=== PATIENT | female | born 1960 | race Caucasian/White ===

== ENCOUNTER 2020-09-26 09:19 | Emergency (ER) | payer SELFPAY ==
[2020-09-26 09:56] VITALS: BP 106/43; PULSE 95; RESP 16; TEMP 36.8; O2SAT 97; BMI 26.5
[2020-09-26 10:00] VITALS: O2SAT 95
--- NOTE | 2020-09-26 10:09 | ED_ITS ---
HPI - Dental/Oral General: Chief complaint: Dental/Oral Stated complaint: mouth swelling/dental pain Time Seen by Provider: 09/26/20 10:03 History of Present Illness: HPI Narrative: Patient is a 60-year-old female comes to the ED with dental pain. Patient says symptoms started yesterday. She has 10 out of 10 pain in the left lower jaw with some swelling. She is currently calling around to get an appointment scheduled with the dentist. Patient endorses having some nausea but no emesis. Denies any shortness of breath or trouble breathing, fevers, chills. Associated symptoms: Denies fever(s) or odynophagia Review of Systems Const: Denies: fever(s), chills or fatigue Eyes: Denies: change in vision or eye discomfort ENMT: Reports: dental pain and other (left lower mandible swelling); Denies: throat pain, odynophagia, nasal discharge or nasal congestion Card: Denies: chest pain, palpitations, edema, swelling of feet/ankles, dyspnea on exertion or orthopnea Resp: Denies: dyspnea, productive cough or non-productive cough GI: Reports: nausea; Denies: abdominal pain, vomiting, diarrhea, constipation or hematochezia : Denies: flank pain, dysuria or hematuria Musc: Denies: neck pain, back pain or extremity swelling Skin/Breast: Denies: rash or new lesions Neuro: Denies: headache(s), numbness in extremities or weakness in extremities Physical Exam Const: COMMON NORMALS: patient oriented x3 and alert GENERAL APPEARANCE: cooperative and comfortable HENMT: COMMON NORMALS: normocephalic HEAD & SCALP: normocephalic MOUTH: Normal oral and palatal mucosa present TEETH & GINGIVA: Yes abnormal tooth and associated gingiva lower left third molar tender and with associated gingival edema, Yes caries and Yes poor dentition THROAT: posterior oropharynx normal and uvula midline Neck/C-Spine: COMMON NORMALS: supple GENERAL: Yes normal visual inspection Resp: COMMON NORMALS: normal respiratory effort, No retractions, No use of accessory muscles and clear to auscultation bilaterally AUSCULTATION: clear to auscultation bilaterally Cardio: COMMON NORMALS: regular rate, regular rhythm, S1 normal heart sound present, S2 normal heart sound present, No gallops present (Cardio), No clicks present (Cardio), No murmurs present (Cardio) and Peripheral pulses 2+ throughout RATE: regular rate RHYTHM: regular rhythm HEART SOUNDS: S1 normal heart sound present and S2 normal heart sound present PERIPHERAL PULSES: Peripheral pulses 2+ throughout GI: COMMON NORMALS: Normal to inspection, nondistended, normoactive bowel sounds present, Soft to palpation, non-tender and no masses PALPATION: Yes Soft to palpation : COMMON NORMALS: Yes no CVA tenderness BLADDER/KIDNEY EXAM: Yes no CVA tenderness Back/Pelvis: COMMON NORMALS: no CVA tenderness Extremity: COMMON NORMALS: normal to inspection Neuro: COMMON NORMALS: patient oriented x3 and moves all extremities SENSORIUM/ORIENTATION: Yes alert Skin: GENERAL SKIN EXAM: dry skin Course Vital Signs: Vital signs: Vital Signs Temperature 98.2 F 09/26/20 09:56 Pulse Rate 95 09/26/20 09:56 Respiratory Rate 16 09/26/20 09:56 Blood Pressure 106/43 09/26/20 09:56 Pulse Oximetry 95 09/26/20 10:00 MDM - Dental/Oral MDM Narrative: Medical decision making narrative: Patient is a 60-year-old female comes to the ED with dental pain. Patient appears nontoxic and she has poor dentition and extensive dental caries especially in the left lower molars. Patient was discharged home with a prescription for clindamycin, Tylenol for pain and Zofran for nausea. Patient told to contact dentist and set up an appoint with them as soon as possible for further evaluation. Return to ED precautions given. Patient understood and agree with plan. Discharge Plan Discharge Patient Disposition: Home Clinical Impression: Pain due to dental caries Condition: Stable Prescriptions: New clindamycin HCl 150 mg capsule 300 mg PO QID 7 Days Qty: 56 RF: 0 ondansetron 4 mg tablet,disintegrating 4 mg PO Q8H PRN (Reason: nausea and vomiting) Qty: 12 RF: 0 Tylenol Extra Strength 500 mg tablet 1,000 mg PO TID PRN (Reason: fever or pain) Qty: 30 RF: 0 Discharge Orders: Discharge ED (Routine); Ordered 09/26/20 Ordered By: Nickolas Collazo Discharge Diet: Regular Discharge Activity: Resume usual activity Patient Instructions: Dental Caries (ED) Activity Restrictions/Additional Instructions: Follow-up with medical provider as directed. Contact your dentist and set up an appoint with them for further evaluation of dental pain as soon as possible. Take medications as prescribed. Return to the ER or your medical provider if condition worsens. Please read and understand discharge instructions. Thank you for choosing [facility] for your healthcare needs today. Please realize this is an emergency room and that we are providing you with a medical screening exam and this may not be complete and all inclusive of all the testing and or work up that you may need to determine your ailment or severity of your illness. It is very important that you follow up as instructed or that you return to the Emergency Department should you have concerns or if your condition changes or worsens in any way. Coding Level of Care Code ED Product Support Manager for Quentin Fwbrett Exam Comprehensive
[2020-09-26] MEDS: clindamycin 150 mg Capsule 300 MG PO (10:36)
[2020-09-26] MEDS: ondansetron 2 mg/ML SDV 2 mL 4 MG IM (10:36)
[2020-09-26] MEDS: HYDROcodone-acetaminophen 7.5-325 mg Tablet 1 TAB PO (10:36)
== END 2020-09-26 10:40 | disposition home or self-care (01) ==
PROVIDERS: Emergency Provider Physician Assistant
DX: K02.9 Dental caries, unspecified (principal)
CPT/HCPCS: 96372; 99283; J2405

== ENCOUNTER 2020-12-19 12:30 | Outpatient (CLI) | payer MEDICAID, SELFPAY ==
--- NOTE | 2020-12-19 12:50 | XR_ITS ---
WS: [id number] LUMBAR SPINE FLEXION AND EXTENSION TECHNIQUE: 3 views of the lumbar spine: Lateral neutral, flexion, and extension views. CLINICAL INFORMATION: LOW BACK PAIN COMPARISON: None. FINDINGS: Grade 1 anterolisthesis L4 on L5 measuring 6 mm in neutral. This increases slightly in flexion to 7 m m and is not significantly changed in extension. Disc space narrowing worse L4-L5 and L5-S1. No acute compression fractures. Moderate to advanced facet arthropathy L4-L5 and L5-S1. XR/XR lumbar spine f/e only [id number] IMPRESSION: Grade 1 anterolisthesis L4 on L5 measuring 6 mm with mild flexion instability.
--- NOTE | 2020-12-19 12:50 | CT_ITS ---
WS: [id number] CT LUMBAR SPINE TECHNIQUE: Noncontrast CT of the lumbar spine with coronal and sagittal reformatted images. CLINICAL INFORMATION: LOW BACK PAIN COMPARISON: None. DLP: 1883.[address] scans at [facility] use at least one of these dose optimization techniques: automated e xposure control; mA and/or kV adjustment per patient size (includes targeted exams where dose is matc hed to clinical indication); or iterative reconstruction. FINDINGS: Mild lumbar curve. No acute compression. Grade 1 anterolisthesis L4 on L5. Lung bases are well aerate d. L1-L2: Normal. L2-L3: Mild annular bulging. Slight effacement of ventral thecal sac. Mild right and no significant l eft foraminal narrowing. Moderate facet arthropathy. Spinal canal is patent. L3-L4: Slight retrolisthesis L3 on L4. Mild annular bulging with mild central canal stenosis. Slight impingement on the subarticular recess bilaterally with moderate facet arthropathy and ligamentum fla vum hypertrophy. Small bilateral foraminal protrusions left greater than right with mild left greater than right foraminal narrowing. L4-L5: Grade 1 anterolisthesis L4 on L5. Disc bulging in combination with facet arthropathy and ligam entum flavum hypertrophy results in moderate central canal stenosis. Impingement traversing L5 nerve roots bilaterally. Advanced facet arthropathy. Small right foraminal protrusion with mild right sammy inal narrowing. Left foramen is patent. L5-S1: Mild annular bulging. Slight effacement of ventral thecal sac. Slight contact of the traversin g S1 nerve roots without significant impingement. Moderate to advanced facet arthropathy worse on the right. Foramen are patent. Visualized pelvic bony structures: Normal. Paravertebral soft tissues: Normal. CT/CT lumbar spine wo con* [id number] IMPRESSION: 1. Mild lumbar curve. No acute compression. Grade 1 anterolisthesis L4 on L5 m easuring 4.3 mm. 2. Moderate central canal stenosis L4-5 with impingement traversing L5 nerve r oots bilaterally. 3. Mild right L4-5 foraminal narrowing. 4. Mild central canal stenosis L3-4. 5. Small left greater than right foraminal protrusions L3-4 with slight contac t of the exiting left greater than right L3 nerve roots. 6. Mild right L2-3 foraminal narrowing. 7. Moderate to advanced facet arthropathy L3-L5.
== END 2020-12-19 12:31 | disposition home or self-care (01) ==
LOC: RADWPI 12:32
PROVIDERS: Visit Provider Nurse Practitioner
DX: M53.2X6 Spinal instabilities, lumbar region (principal); M47.816 Spondylosis without myelopathy or radiculopathy, lumbar region; M48.061 Spinal stenosis, lumbar region without neurogenic claudication
CPT/HCPCS: 72120; 72131

== ENCOUNTER 2021-05-03 02:03 | Inpatient (IN) | payer MEDICAID, SELFPAY ==
[2021-05-03] VITALS (18 sets, daily range): BP systolic 102–171; BP diastolic 68–109; PULSE 65–92; RESP 14–20; TEMP 36.7–37.4; O2SAT 92–100; BMI 26.5
--- NOTE | 2021-05-03 02:37 | CTR_ITS ---
PROCEDURE INFORMATION: Exam: CT Head Without Contrast Exam date and time: 05/03/2021 2:37 AM Age: 61 years old Clinical indication: Altered mental status/memory loss; Prior surgery; Surgery type: Cervical fusion. ; Patient HX: AMS with ETOH. TECHNIQUE: Imaging protocol: Computed tomography of the head without contrast. Radiation optimization: All CT scans at this facility use at least one of these dose optimization techniques: automated exposure control; mA and/or kV adjustment per patient size (includes targeted exams where dose is matched to clinical indication); or iterative reconstruction. COMPARISON: No relevant prior studies available. 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 Cerebral ventricles: No ventriculomegaly. Paranasal sinuses: Visualized sinuses are unremarkable. No fluid levels. Mastoid air cells: Visualized mastoid air cells are well aerated. Bones/joints: Unremarkable. No acute fracture. Soft tissues: Unremarkable. CT/CT head wo con* [id number] IMPRESSION: No acute intracranial findings.
--- NOTE | 2021-05-03 02:38 | XRR_ITS ---
PROCEDURE INFORMATION: Exam: XR Chest Exam date and time: 05/03/2021 2:38 AM Age: 61 years old Clinical indication: Other: Ams/etoh; Prior surgery; Surgery type: Cervical fusion; Patient HX: AMS with ETOH. Patient acting very confused and disoriented. Best filim obtained. TECHNIQUE: Imaging protocol: XR of the chest. Views: 1 view. COMPARISON: No relevant prior studies available. FINDINGS: Lungs: Mildly hyperaerated lungs consistent with deep inspiratory effort vs reactive airway disease vs mild COPD . Pleural spaces: Unremarkable. No pleural effusion. No pneumothorax. Heart/Mediastinum: Unremarkable. No cardiomegaly. Bones/joints: Postoperative metallic fixation of the cervical spine with or without metallic artifact. XR/XR chest 1V portable [id number] IMPRESSION: Mildly hyperaerated lungs consistent with deep inspiratory effort vs reactive airway disease vs mild COPD .
--- NOTE | 2021-05-03 02:57 | ED_ITS ---
HPI - Altered Mental Status General: Chief Complaint: Altered Mental Status Stated Complaint: ETOH/FALL Time Seen by Provider: 05/03/21 02:08 History of Present Illness: 61-year-old lady presents by ambulance from [facility]. Evidently she was found on the floor. She does not know how long she has been on the floor, but she says it has been quite some time. She says that she has carpet faria to her backside in the back of her shoulders due to being on the floor and having to scoot herself on her back. She notes that she has chronic stiff legs. She takes medication for stiffness. She admits to having Xanax, baclofen, and alcohol, probably in the last 24 hours, although she is not sure about timing. She is obviously a poor historian at this point. She states that she was left in the floor by Thom who was my boyfriend . Review of Systems General: Reports: ROS unobtainable due to mental status (Unreliable) Physical Exam Const: GENERAL APPEARANCE: anxious, frail appearing and appears older than stated age ORIENTATION/CONSCIOUSNESS: Yes awake, Yes oriented to person, Yes oriented to place and Yes confused; not oriented to time HENMT: COMMON NORMALS: normocephalic, atraumatic and Normal external nose present HEAD & SCALP: normocephalic and atraumatic FACE & SINUS: normal facial exam NOSE: Normal external nose present and Normal nares present Eye: COMMON NORMALS: Equal, round and reactive pupils present and EOMs intact bilaterally PUPIL: Yes Equal, round and reactive pupils present Neck/C-Spine: COMMON NORMALS: no meningeal signs GENERAL: No tender Resp: COMMON NORMALS: normal respiratory effort, No use of accessory muscles and clear to auscultation bilaterally AUSCULTATION: clear to auscultation bilaterally Cardio: COMMON NORMALS: regular rate and regular rhythm RATE: regular rate RHYTHM: regular rhythm GI: COMMON NORMALS: Normal to inspection, nondistended, normoactive bowel sounds present and Soft to palpation PALPATION: Yes Soft to palpation : COMMON NORMALS: Yes no CVA tenderness BLADDER/KIDNEY EXAM: Yes no CVA tenderness Back/Pelvis: COMMON NORMALS: no CVA tenderness Neuro: CLAUDIO COMA SCALE: document GCS findings [place] coma scale eye opening: Spontaneous Claudio coma scale verbal response: Confused [place] coma scale motor response: Obey commands Claudio coma scale total score: 14 SENSORIUM/ORIENTATION: Yes oriented to person, Yes oriented to place and No oriented to time MENINGEAL SIGNS: Yes no meningeal signs Course Consultations: Consultation #1: inna Time: 05:16 Vital Signs: Vital signs: Vital Signs Temperature 99.3 F 05/03/21 02:04 Pulse Rate 70 05/03/21 05:00 Respiratory Rate 18 05/03/21 05:00 Blood Pressure 127/91 05/03/21 05:00 Pulse Oximetry 96 05/03/21 05:00 MDM - Altered Mental Status Medical Decision Making 61-year-old female presenting via EMS. She notes that she has been in the floor of the home for a couple of days. She denies drinking for the last 2 days. She is incredibly anxious. She denies any toxic symptoms otherwise, but is a very poor historian. White blood cell count is 13 with 80% neutrophils. Sodium is elevated at 149. Creatinine 0.7. CK is only 583. Ammonia level is 22. Alcohol is negative. Head CT is negative for acute change. She has no focal neurologic findings. Chest x-ray is negative as well. Urinalysis is nitrate positive, but leukocyte Estrace negative. Because of mental status changes not clear at this point. Her drug screen is positive for opiates. Her oxygen saturations been normal. She is afebrile here. In the differential diagnosis would be alcohol withdrawal, opiate intoxication, infectious etiology although this does not seem likely. Sodium is elevated, but not to the level we would expect for these types of mental status changes. She will be observed. Lab Data : 05/03/21 03:15 05/03/21 03:[address] 05/03/21 02:37 IMPRESSION: No acute intracranial findings. Chest X-Ray 05/03/21 02:38 IMPRESSION: Mildly hyperaerated lungs consistent with deep inspiratory effort vs reactive airway disease vs mild COPD . Laboratory Results WBC 13.0 10^3/uL (4.0-10.0) H 05/03/21 03:15 RBC 4.43 10^6/uL (4.1-5.3) 05/03/21 03:15 Hgb 14.2 g/dL (11.5-15.3) 05/03/21 03:15 Hct 41.6 % (37.0-47.0) 05/03/21 03:15 MCV 93.9 fl (81-99) 05/03/21 03:15 MCH 32.1 pg (28.0-34.0) 05/03/21 03:15 MCHC 34.1 g/dL (30.0-36.0) 05/03/21 03:15 RDW 15.9 % (12.1-15.1) H 05/03/21 03:15 Plt Count 475 10^3/cmm (130-400) H 05/03/21 03:15 MPV 9.9 fL (7.4-10.4) 05/03/21 03:15 Neut % (Auto) 80.2 % 05/03/21 03:15 Lymph % (Auto) 5.9 % 05/03/21 03:15 [place] % (Auto) 12.6 % 05/03/21 03:15 Eos % (Auto) 0.2 % 05/03/21 03:15 Baso % (Auto) 0.3 % 05/03/21 03:15 Neut # (Auto) 10.39 10^3/uL (1.8-7.7) H 05/03/21 03:15 Lymph # (Auto) 0.8 10^3/uL (0.8-4.8) 05/03/21 03:15 [place] # (Auto) 1.6 10^3/uL (0.2-0.9) H 05/03/21 03:15 Eos # (Auto) 0.0 10^3/uL (0.0-0.8) 05/03/21 03:15 Baso # (Auto) 0.0 10^3/uL (0.0-0.1) 05/03/21 03:15 Nucleated RBC % (auto) 0 % 05/03/21 03:15 Nucleated RBCs # 0.0 /100WBC 05/03/21 03:15 PT 13.60 SECONDS (12.1-14.9) 05/03/21 03:15 INR 1.01 (0.8-1.2) 05/03/21 03:15 APTT 20.3 SECONDS (23.9-36.7) L 05/03/21 03:15 Sodium 149 mmol/L (136-145) H 05/03/21 03:15 Potassium 3.7 mmol/L (3.5-5.1) 05/03/21 03:15 Chloride 108 mmol/L (98-107) H 05/03/21 03:15 Carbon Dioxide 27 mmol/L (22-29) 05/03/21 03:15 Anion Gap 17.7 (5-19) 05/03/21 03:15 BUN 9 mg/dL (6-20) 05/03/21 03:15 Creatinine 0.7 mg/dL (0.5-0.9) 05/03/21 03:15 GFR Calculation 85.6 mL/min (90-130) L 05/03/21 03:15 Glucose 129 mg/dL (65-115) H 05/03/21 03:15 Calculated Osmolality 308 mOsm/kg (285-295) H 05/03/21 03:15 Lactate 2.2 mmol/L (0.5-2.2) 05/03/21 03:15 Lactate Cancelled 05/03/21 03:15 Calcium 8.6 mg/dL (8.5-10.5) 05/03/21 03:15 Total Bilirubin 0.7 mg/dL (0.15-1.2) 05/03/21 03:15 AST 41 U/L (0-32) H 05/03/21 03:15 ALT 22 U/L (0-33) 05/03/21 03:15 Alkaline Phosphatase 143 IU/L (35-105) H 05/03/21 03:15 Ammonia 22 umol/L (11-51) 05/03/21 03:15 Creatine Kinase 583 U/L (26-192) H* 05/03/21 03:15 Total Protein 6.8 g/dL (6.6-8.7) 05/03/21 03:15 Albumin 3.8 g/dL (3.5-5.2) 05/03/21 03:15 Globulin 3.0 g/dL (1.3-4.6) 05/03/21 03:15 Urine Color Yellow (Yellow) 05/03/21 04:07 Urine Appearance Sl cloudy (CLEAR) A 05/03/21 04:07 Urine pH 5 (5-7) 05/03/21 04:07 Ur Specific [place] 1.020 (1.005-1.030) 05/03/21 04:07 Urine Protein 1+ (Negative) H 05/03/21 04:07 Urine Glucose (UA) Norm (Normal) 05/03/21 04:07 Urine Ketones 1+ (Negative) H 05/03/21 04:07 Urine Blood 2+ (Negative) H 05/03/21 04:07 Urine Nitrate Positive (Negative) H 05/03/21 04:07 Urine Bilirubin Neg (Negative) 05/03/21 04:07 Urine Urobilinogen Norm mg/dL (Negative) 05/03/21 04:07 Ur Leukocyte Esterase Negative (Negative) 05/03/21 04:07 Urine RBC 0-4 /hpf (0-2) H 05/03/21 04:07 Urine WBC 0-4 /hpf (0-5) H 05/03/21 04:07 Ur Squamous Epith Cells 0-4 /hpf (0-5) H 05/03/21 04:07 Amorphous Sediment Not Reportable 05/03/21 04:07 Urine Bacteria 4+ /hpf (NONE) H 05/03/21 04:07 Urine Opiates Screen Positive ng/mL (Negative) H 05/03/21 04:07 Ur Barbiturates Screen Negative ng/mL (Negative) 05/03/21 04:07 Ur Phencyclidine Scrn Negative ng/mL (Negative) 05/03/21 04:07 Ur Amphetamines Screen Negative ng/mL (Negative) 05/03/21 04:07 U Benzodiazepines Scrn Negative ng/mL (Negative) 05/03/21 04:07 Urine Cocaine Screen Negative ng/mL (Negative) 05/03/21 04:07 U Marijuana (THC) Screen Negative ng/mL (Negative) 05/03/21 04:07 Ethyl Alcohol < 10 mg/dL (0-10) 05/03/21 03:15 Discharge Plan Discharge Patient Disposition: Placed in Observation Clinical Impression: Altered mental status Coding Level of Care Code ED Candy Attendant for Quentin Connelly Exam Comprehensive
[2021-05-03] MEDS: sodium chloride 0.9% 1,000 ML 999 ML IV (03:23)
[2021-05-03 03:26] LABS: Basophils % 0.3 %; Eosinophils % 0.2 %; Hematocrit 41.6 % (37.0-47.0); Hemoglobin 14.2 g/dL (11.5-15.3); Lymphocytes # 0.8 10^3/uL (0.8-4.8); Lymphocytes % 5.9 %; Mean Corpuscular HGB Conc 34.1 g/dL (30.0-36.0); Mean Corpuscular Hemoglobin 32.1 pg (28.0-34.0); Mean Corpuscular Volume 93.9 fl (81-99); Mean Platelet Volume 9.9 fL (7.4-10.4); Monocytes # 1.6 10^3/uL (0.2-0.9); Monocytes % 12.6 %; Neutrophils # 10.39 10^3/uL (1.8-7.7); Neutrophils % 80.2 %; Nucleated Red Blood Cells % 0 %; Platelet Count 475 10^3/cmm (130-400); Red Blood Count 4.43 10^6/uL (4.1-5.3); Red Cell Distribution Width 15.9 % (12.1-15.1)
[2021-05-03] MEDS: haloperidol inj 5 mg/mL INJ 1 mL 3 MG IVP (03:27)
[2021-05-03 03:37] LABS: INR 1.01 (0.8-1.2)
[2021-05-03 03:38] LABS: Partial Thromboplastin Time 20.3 SECONDS (23.9-36.7)
[2021-05-03 03:44] LABS: Lactate (Lactic Acid level) 2.2 mmol/L (0.5-2.2)
--- NOTE | 2021-05-03 03:46 | ECG_ITS ---
[facility] Test Date: 2021-05-03 Pat Name: Anastasiya Puga Department: Room: Gender: Female Astronomy Professor: : 1960 Requested By: Prieto Olmos Order Number: [id number] Margy MD: Pratik Quiñonez M.D. Measurements Intervals [place] Rate: 66 P: 71 UT: 142 QRS: 46 QRSD: 86 T: -26 QT: 446 QTc: 469 Interpretive Statements SINUS RHYTHM POSSIBLE LEFT ATRIAL ENLARGEMENT [-0.1mV P-WAVE IN V1/V2] NONSPECIFIC ST & T-WAVE ABNORMALITY No previous ECG available for comparison Electronically Signed On 05-04-2021 15:46:26 CDT by Pratik Quiñonez M.D. [email or web address]
[2021-05-03 03:48] LABS: Ammonia 22 umol/L (11-51)
[2021-05-03 03:50] LABS: Alanine Aminotransferase 22 U/L (0-33); Albumin Level 3.8 g/dL (3.5-5.2); Alkaline Phosphatase 143 IU/L (35-105); Anion Gap 17.7 (5-19); Aspartate Amino Transferase 41 U/L (0-32); Blood Urea Nitrogen 9 mg/dL (6-20); Calcium 8.6 mg/dL (8.5-10.5); Carbon Dioxide 27 mmol/L (22-29); Chloride 108 mmol/L (98-107); Creatinine Clr Calc Pharmacy 80.1277; Glomerular Filtration Rate 85.6 mL/min (90-130); Glucose 129 mg/dL (65-115); Osmolality Calculated 308 mOsm/kg (285-295); Potassium 3.7 mmol/L (3.5-5.1); Sodium 149 mmol/L (136-145); Total Bilirubin 0.7 mg/dL (0.15-1.2); Total Protein 6.8 g/dL (6.6-8.7)
[2021-05-03 03:52] LABS: Alcohol Level < 10 mg/dL (0-10)
[2021-05-03 04:14] LABS: Add Urine Microscopic? YES; Bilirubin Urine Neg (Negative); Blood Urine 2+ (Negative); Glucose Urine UA Norm (Normal); Ketones Urine 1+ (Negative); Leukocyte Esterase Urine Negative (Negative); Nitrate Urine Positive (Negative); Protein Urine 1+ (Negative); Urine Color Yellow (Yellow); Urobilinogen Urine Norm (Negative); pH Urine 5 (5-7)
[2021-05-03 04:19] LABS: Amphetamines Screen Urine Negative (Negative); Barbiturates Screen Urine Negative (Negative); Benzodiazepines Screen Urine Negative (Negative); Cocaine Screen Urine Negative (Negative); Opiate Screen Urine Positive (Negative); PCP Screen Urine Negative (Negative); THC Screen Urine Negative (Negative)
[2021-05-03 04:27] LABS: Creatine Phosphokinase 583 U/L (26-192)
--- NOTE | 2021-05-03 04:27 | PC.NURSE ---
CK [address] Buckley.
[2021-05-03 04:30] LABS: Add Urine Culture? Yes; Bacteria Urine 4+ /hpf; RBC Urine 0-4 /hpf (0-2); Squamous Epithelial Cell Urine 0-4 /hpf (0-5); WBC Urine 0-4 /hpf (0-5)
[2021-05-03] MEDS: pantoprazole 40 mg SDV IVP (08:14)
[2021-05-03] MEDS: cefTRIAXone 1,000 MG in sodium chloride 0.9% (plus) 50 ML 100 MG IV (08:24)
[2021-05-03] MEDS: dextrose 5%-sod chloride 0.9% 1,000 ML 75 ML IV ×2 (08:26→21:48)
[2021-05-03] MEDS: acetaminophen 325 mg Tablet 650 MG PO ×2 (08:45→23:44)
[2021-05-03 08:54] LABS: Procalcitonin 0.66 ng/mL (0-0.5)
[2021-05-03 09:19] LABS: Thyroid Stimulating Hormone 0.82 uIU/mL (0.27-4.20)
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
--- NOTE | 2021-05-03 11:12 | XRR_ITS ---
PROCEDURE INFORMATION: Exam: XR Lumbosacral Spine Exam date and time: 05/03/2021 11:12 AM Age: 61 years old Clinical indication: Low back pain; Patient HX: C/O lbp after fall at home TECHNIQUE: Imaging protocol: XR of the lumbosacral spine. Views: 2 or 3 views. COMPARISON: CT lumbar spine wo con* [id number] 12/19/2020 1:29 PM FINDINGS: Bones/joints: Partial sacralization of the left portion of L5 with unilateral left-sided articulation which can be a source of chronic low back pain. Grade 1 anterior non-spondylitic spondylolisthesis of L4 on L5 with probable central spinal stenosis and prominent facet degenerative changes. Mild lumbar spondylosis. Soft tissues: Unremarkable. XR/XR lumbar spine 2-3V* [id number] IMPRESSION: 1. Partial sacralization of the left portion of L5 with unilateral left-sided articulation which can be a source of chronic low back pain. 2. Grade 1 anterior non-spondylitic spondylolisthesis of L4 on L5 with probable central spinal stenosis and prominent facet degenerative changes. 3. Mild lumbar spondylosis.
--- NOTE | 2021-05-03 11:13 | XRR_ITS ---
PROCEDURE INFORMATION: Exam: XR Spine; Cervical Exam date and time: 05/03/2021 11:13 AM Age: 61 years old Clinical indication: Pain: Neck pain; Prior surgery; Surgery date: 6+ months; Surgery type: Multi level fusion; Patient HX: C/O pain after fall at home TECHNIQUE: Imaging protocol: XR of the spine. Exam focused on the cervical spine. Views: 1 view. COMPARISON: CT head wo con* [id number] 05/03/2021 3:58 AM FINDINGS: Bones/joints: Bilateral C3, C4, C5 and C6 posterior pedicular screws with additional thoracic pedicular screws and vertical stabilization bar. Soft tissues: Normal. Other findings: C7 is partially visualized with nonvisualization of the levels below C7. XR/XR cervical spine 1V [id number] IMPRESSION: 1. Bilateral C3, C4, C5 and C6 posterior pedicular screws with additional thoracic pedicular screws and vertical stabilization bar. 2. C7 is partially visualized with nonvisualization of the levels below C7. 3. No acute findings.
[2021-05-03] MEDS: HYDROcodone-acetaminophen 10-325 mg Tablet 1 TAB PO ×2 (12:46→20:53)
--- NOTE | 2021-05-03 14:02 | XRR_ITS ---
PROCEDURE INFORMATION: Exam: XR Spine; Thoracic Exam date and time: 05/03/2021 2:02 PM Age: 61 years old Clinical indication: Pain: Upper back pain; Prior surgery; Surgery date: 6+ months; Surgery type: C-t fusion; Patient HX: C/O back pain after fall at home TECHNIQUE: Imaging protocol: XR of the spine. Exam focused on the thoracic spine. Views: 1 view. COMPARISON: CR XR lumbar spine 2-3V* [id number] 05/03/2021 2:12 PM FINDINGS: Bones/joints: Bilateral posterior pedicular screws involving C3, C4, C5 and C6 along with T2 and T3 with vertical stabilization bar. Soft tissues: Normal. XR/XR thoracic spine 1V [id number] IMPRESSION: 1. Bilateral posterior pedicular screws involving C3, C4, C5 and C6 along with T2 and T3 with vertical stabilization bar. 2. No acute spine findings.
[2021-05-03] MEDS: BuSPIRONE 10 mg Tablet 15 MG PO ×2 (14:29→20:52)
[2021-05-03] MEDS: baclofen 10 mg Tablet 20 MG PO ×2 (14:29→20:52)
[2021-05-03] MEDS: gabapentin 400 mg Capsule PO ×2 (14:29→20:52)
--- NOTE | 2021-05-03 14:36 | PC.OT ---
Per PT, pt actively hallucinating and not appropriate for OT this date. Will attempt OT eval tomorrow.
[2021-05-03] MEDS: propranolol 20 mg Tablet PO (17:24)
[2021-05-04] VITALS (11 sets, daily range): BP systolic 125–166; BP diastolic 82–106; PULSE 58–73; RESP 16–18; TEMP 36.4–37.1; O2SAT 95–97
[2021-05-04] MEDS: LORazepam 2 mg Tablet PO ×2 (03:37→12:48)
[2021-05-04] MEDS: lanolin oint 7 gm 1 APPLIC TOPICAL (03:50)
[2021-05-04 05:54] LABS: Basophils % 0.4 %; Eosinophils # 0.5 10^3/uL (0.0-0.8); Eosinophils % 5.1 %; Hemoglobin 11.3 g/dL (11.5-15.3); Lymphocytes # 2.6 10^3/uL (0.8-4.8); Mean Corpuscular HGB Conc 32.3 g/dL (30.0-36.0); Mean Corpuscular Hemoglobin 31.3 pg (28.0-34.0); Mean Platelet Volume 9.9 fL (7.4-10.4); Monocytes % 10.9 %; Neutrophils # 5.38 10^3/uL (1.8-7.7); Neutrophils % 56.3 %; Nucleated Red Blood Cells % 0 %; Platelet Count 373 10^3/cmm (130-400); Red Blood Count 3.61 10^6/uL (4.1-5.3); Red Cell Distribution Width 16.4 % (12.1-15.1); White Blood Count 9.6 10^3/uL (4.0-10.0)
[2021-05-04 06:21] LABS: Alanine Aminotransferase 14 U/L (0-33); Albumin Level 2.6 g/dL (3.5-5.2); Alkaline Phosphatase 102 IU/L (35-105); Anion Gap 13.5 (5-19); Aspartate Amino Transferase 15 U/L (0-32); Blood Urea Nitrogen 6 mg/dL (6-20); Calcium 7.4 mg/dL (8.5-10.5); Carbon Dioxide 21 mmol/L (22-29); Chloride 108 mmol/L (98-107); Globulin 2.4 g/dL (1.3-4.6); Glomerular Filtration Rate 102.3 mL/min (90-130); Glucose 102 mg/dL (65-115); Osmolality Calculated 288 mOsm/kg (285-295); Total Bilirubin 0.2 mg/dL (0.15-1.2)
[2021-05-04 06:22] LABS: Potassium 2.5 mmol/L (3.5-5.1); Sodium 140 mmol/L (136-145)
[2021-05-04] MEDS: HYDROcodone-acetaminophen 10-325 mg Tablet 1 TAB PO ×2 (06:38→18:02)
[2021-05-04 08:33] LABS: Magnesium 1.6 mg/dL (1.7-2.3)
[2021-05-04] MEDS: cefTRIAXone 1,000 MG in sodium chloride 0.9% (plus) 50 ML 100 MG IV (08:34)
[2021-05-04] MEDS: multivitamin therapeutic Tablet 1 TAB PO (08:36)
[2021-05-04] MEDS: sertraline 50 mg Tablet 25 MG PO (08:36)
[2021-05-04] MEDS: propranolol 20 mg Tablet PO ×2 (08:36→18:03)
[2021-05-04] MEDS: thiamine 100 mg Tablet PO (08:36)
[2021-05-04] MEDS: baclofen 10 mg Tablet 20 MG PO ×3 (08:36→21:00)
[2021-05-04] MEDS: folic acid 1 mg Tablet PO (08:36)
[2021-05-04] MEDS: gabapentin 400 mg Capsule PO ×3 (08:36→21:00)
[2021-05-04] MEDS: pantoprazole 40 mg SDV IVP (08:36)
[2021-05-04] MEDS: BuSPIRONE 10 mg Tablet 15 MG PO ×3 (08:37→21:00)
[2021-05-04] MEDS: lidocaine 1% 5 ML in potassium chloride premix 100 ML 25 ML IV ×2 (08:49→13:16)
[2021-05-04 09:00] LABS: Phosphorus 2.7 mg/dL (2.5-4.5)
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
--- NOTE | 2021-05-04 10:37 | XRR_ITS ---
NOTE: Report was unsigned for reason: Order was edited. Original Signature date and time was: 05/04/2021 1606 PROCEDURE INFORMATION: Exam: XR Bilateral Hips Exam date and time: 05/04/2021 10:37 AM Age: 61 years old Clinical indication: Injury or trauma; Fall; Blunt trauma (contusions or hematomas); Bilateral; Hip TECHNIQUE: Imaging protocol: XR bilateral hips. Views: 2 views of hips with pelvis when performed. COMPARISON: CR XR lumbar spine 2-3V* [id number] 05/03/2021 2:12 PM FINDINGS: Bones/joints: Unremarkable. No acute fracture. Soft tissues: Unremarkable. MTD XR/XR hip BI 2V wo/w pel [id number] IMPRESSION: No acute findings.
[2021-05-04] MEDS: dextrose 5%-sod chloride 0.9% 1,000 ML 75 ML IV (12:48)
[2021-05-04] MEDS: acetaminophen 325 mg Tablet 650 MG PO (21:04)
[2021-05-05] VITALS (9 sets, daily range): BP systolic 121–173; BP diastolic 77–113; PULSE 57–83; RESP 14–18; TEMP 36.3–37.1; O2SAT 95–97
[2021-05-05] MEDS: HYDROcodone-acetaminophen 10-325 mg Tablet 1 TAB PO ×3 (02:45→16:33)
[2021-05-05] MEDS: dextrose 5%-sod chloride 0.9% 1,000 ML 75 ML IV (02:46)
[2021-05-05] MEDS: BuSPIRONE 10 mg Tablet 15 MG PO ×3 (07:52→20:16)
[2021-05-05] MEDS: folic acid 1 mg Tablet PO (07:52)
[2021-05-05] MEDS: propranolol 20 mg Tablet PO ×2 (07:54→16:31)
[2021-05-05] MEDS: multivitamin therapeutic Tablet 1 TAB PO (07:54)
[2021-05-05] MEDS: thiamine 100 mg Tablet PO (07:54)
[2021-05-05] MEDS: baclofen 10 mg Tablet 20 MG PO ×3 (07:54→20:17)
[2021-05-05] MEDS: sertraline 50 mg Tablet 25 MG PO (07:55)
[2021-05-05] MEDS: gabapentin 400 mg Capsule PO ×3 (07:56→20:17)
[2021-05-05] MEDS: pantoprazole 40 mg SDV IVP (07:56)
[2021-05-05] MEDS: cefTRIAXone 1,000 MG in sodium chloride 0.9% (plus) 50 ML 100 MG IV (07:56)
[2021-05-05] MEDS: LORazepam 2 mg Tablet PO ×2 (07:57→20:17)
--- NOTE | 2021-05-05 09:08 | PC.NURSE ---
changed bedding and provided a bed bath per patient request.
[2021-05-05] MEDS: docusate sodium 100 mg Capsule PO ×2 (10:02→16:36)
[2021-05-05] MEDS: cloNIDine 0.1 mg Tablet PO ×2 (10:02→20:17)
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
[2021-05-05 14:24] LABS: Basophils # 0.1 10^3/uL (0.0-0.1); Basophils % 0.4 %; Eosinophils # 0.6 10^3/uL (0.0-0.8); Eosinophils % 4.3 %; Hematocrit 36.5 % (37.0-47.0); Hemoglobin 11.9 g/dL (11.5-15.3); Lymphocytes # 2.9 10^3/uL (0.8-4.8); Lymphocytes % 21.3 %; Mean Corpuscular HGB Conc 32.6 g/dL (30.0-36.0); Mean Corpuscular Volume 98.1 fl (81-99); Mean Platelet Volume 9.7 fL (7.4-10.4); Monocytes # 1.2 10^3/uL (0.2-0.9); Monocytes % 8.7 %; Neutrophils % 64.9 %; Nucleated Red Blood Cells % 0 %; Platelet Count 397 10^3/cmm (130-400); Red Blood Count 3.72 10^6/uL (4.1-5.3); Red Cell Distribution Width 16.5 % (12.1-15.1); White Blood Count 13.4 10^3/uL (4.0-10.0)
[2021-05-05 14:52] LABS: Alanine Aminotransferase 17 U/L (0-33); Albumin Level 3.1 g/dL (3.5-5.2); Alkaline Phosphatase 116 IU/L (35-105); Anion Gap 12.7 (5-19); Aspartate Amino Transferase 21 U/L (0-32); Blood Urea Nitrogen 6 mg/dL (6-20); Calcium 8.7 mg/dL (8.5-10.5); Carbon Dioxide 20 mmol/L (22-29); Chloride 109 mmol/L (98-107); Glomerular Filtration Rate 126.3 mL/min (90-130); Glucose 113 mg/dL (65-115); Osmolality Calculated 284 mOsm/kg (285-295); Potassium 3.7 mmol/L (3.5-5.1); Sodium 138 mmol/L (136-145); Total Bilirubin 0.2 mg/dL (0.15-1.2); Total Protein 6.1 g/dL (6.6-8.7)
[2021-05-05] MEDS: polyethylene glycol 3350 Pkt 17 gm PO (16:31)
[2021-05-06] VITALS (7 sets, daily range): BP systolic 137–160; BP diastolic 89–105; PULSE 63–70; RESP 16–17; TEMP 36.6; O2SAT 96–97
[2021-05-06] MEDS: HYDROcodone-acetaminophen 10-325 mg Tablet 1 TAB PO ×2 (00:19→08:18)
[2021-05-06] MEDS: LORazepam 2 mg Tablet PO (04:26)
[2021-05-06 05:30] LABS: Basophils % 0.4 %; Eosinophils # 0.5 10^3/uL (0.0-0.8); Hematocrit 31.8 % (37.0-47.0); Hemoglobin 10.9 g/dL (11.5-15.3); Lymphocytes # 2.3 10^3/uL (0.8-4.8); Lymphocytes % 25.3 %; Mean Corpuscular HGB Conc 34.3 g/dL (30.0-36.0); Mean Corpuscular Hemoglobin 32.2 pg (28.0-34.0); Mean Corpuscular Volume 94.1 fl (81-99); Mean Platelet Volume 10.1 fL (7.4-10.4); Monocytes # 0.8 10^3/uL (0.2-0.9); Monocytes % 8.3 %; Neutrophils # 5.56 10^3/uL (1.8-7.7); Neutrophils % 60.3 %; Nucleated Red Blood Cells % 0 %; Platelet Count 315 10^3/cmm (130-400); Red Blood Count 3.38 10^6/uL (4.1-5.3); Red Cell Distribution Width 16.2 % (12.1-15.1); White Blood Count 9.2 10^3/uL (4.0-10.0)
[2021-05-06 05:46] LABS: Alanine Aminotransferase 16 U/L (0-33); Alkaline Phosphatase 100 IU/L (35-105); Aspartate Amino Transferase 15 U/L (0-32); Blood Urea Nitrogen 6 mg/dL (6-20); Calcium 7.5 mg/dL (8.5-10.5); Carbon Dioxide 21 mmol/L (22-29); Chloride 109 mmol/L (98-107); Globulin 1.8 g/dL (1.3-4.6); Glomerular Filtration Rate 102.3 mL/min (90-130); Glucose 92 mg/dL (65-115); Osmolality Calculated 289 mOsm/kg (285-295); Sodium 141 mmol/L (136-145); Total Bilirubin 0.2 mg/dL (0.15-1.2); Total Protein 4.8 g/dL (6.6-8.7)
[2021-05-06] MEDS: gabapentin 400 mg Capsule PO ×2 (08:13→13:59)
[2021-05-06] MEDS: docusate sodium 100 mg Capsule PO (08:13)
[2021-05-06] MEDS: sertraline 50 mg Tablet 25 MG PO (08:13)
[2021-05-06] MEDS: baclofen 10 mg Tablet 20 MG PO ×2 (08:13→13:58)
[2021-05-06] MEDS: pantoprazole 40 mg SDV IVP (08:13)
[2021-05-06] MEDS: propranolol 20 mg Tablet PO (08:13)
[2021-05-06] MEDS: thiamine 100 mg Tablet PO (08:13)
[2021-05-06] MEDS: multivitamin therapeutic Tablet 1 TAB PO (08:13)
[2021-05-06] MEDS: BuSPIRONE 10 mg Tablet 15 MG PO ×2 (08:13→13:58)
[2021-05-06] MEDS: cloNIDine 0.1 mg Tablet PO (08:13)
[2021-05-06] MEDS: cefTRIAXone 1,000 MG in sodium chloride 0.9% (plus) 50 ML 100 MG IV (08:13)
[2021-05-06] MEDS: folic acid 1 mg Tablet PO (08:13)
[2021-05-06] MEDS: polyethylene glycol 3350 Pkt 17 gm PO (08:15)
[2021-05-06] MEDS: amlodipine 10 mg Tablet PO (09:44)
--- NOTE | 2021-05-06 12:56 | P.DS_ITS ---
Discharge Providers Date of Admission: 05/03/21 05:06 Date of Discharge: May 06, 2021 Attending Provider at Admission: Erma Bender MD Attending Provider at Discharge: Nasim Gould MD Diagnoses at Discharge Discharge Diagnosis (1) Alcohol withdrawal: Status: Acute (2) Fall: Status: Acute (3) Altered mental status: Status: Acute (4) UTI (urinary tract infection): Status: Acute (5) Rhabdomyolysis: Status: Acute (6) Burn: Status: Acute Reason for Visit Reason for Visit: ETOH/FALL Hospital Course Hospital Course Anastasiya Puga is a 61 year old female with a past medical history of chronic pain on methadone in the past, now off methadone hydrocodone, history of cervical fracture resulting in left upper extremity flexion contracture, left lower extremity weakness, ambulates in all wheeled walker, history of alcoholism, who presents [facility] for a fall.? Patient tells me that over the last few weeks she has been sick, by that she means that she is gone on alcohol cowan, her last alcohol drink was about 24 hours ago, she had about a half a liter of fireball. Patient had a hospitalization altered mental status secondary to UTI, alcohol withdrawal. For UTI, received inpatient antibiotics, urine cultures positive for E. coli, discharged on Bactrim. Also had hypokalemia, improved with p.o. replacement. For alcohol withdrawal, received CIWA score as inpatient, out of alcohol withdrawal window, advised to abstain from alcohol consumption. For rhabdomyolysis, received IV fluids, clinically improved. Also had multiple carpet faria, conservatively managed. History of cervical fracture, home medication was continued. Discharge home with follow-up with primary care provider as outpatient, advised to abstain from alcohol consumption Physical Exam Const: COMMON NORMALS: no acute distress and patient oriented x3 Resp: COMMON NORMALS: normal respiratory effort, No retractions, No use of accessory muscles and clear to auscultation bilaterally AUSCULTATION: clear to auscultation bilaterally Cardio: COMMON NORMALS: regular rate, regular rhythm, S1 normal heart sound present and S2 normal heart sound present RATE: regular rate RHYTHM: regular rhythm HEART SOUNDS: S1 normal heart sound present and S2 normal heart sound present GI: COMMON NORMALS: Normal to inspection, nondistended, normoactive bowel sounds present, Soft to palpation, non-tender and No hepatosplenomegaly present PALPATION: Yes Soft to palpation and Yes No hepatosplenomegaly present Extremity: COMMON NORMALS: no pedal edema Neuro: COMMON NORMALS: patient oriented x3 Psych: COMMON NORMALS: mental status grossly normal Urinary Catheter Management: Loaiza: Cath Placed During This Visit: yes Urinary Catheter Date of Insertion: 05/03/21 Urinary Catheter Time of Insertion: 03:30 Discharge Data Studies Completed and Pending Completed Studies During Hospitalization Category Date Time Status CT head wo con* [id number] Urgent Cat Scan 05/03/21 02:37 Completed XR cervical spine 1V [id number] Routine Exams 05/03/21 11:13 Completed XR chest 1V portable [id number] Stat Exams 05/03/21 02:38 Completed XR hip BI 3-4V wo/w pel [id number] Routine Exams 05/04/21 10:37 Completed XR lumbar spine 2-3V* [id number] Routine Exams 05/03/21 11:12 Completed XR thoracic spine 1V [id number] Routine Exams 05/03/21 14:02 Completed Pending at discharge Category Date Time Status Blood Culture Routine Lab 05/03/21 19:10 Results Radiology Impressions Head CT 05/03/21 02:37 IMPRESSION: No acute intracranial findings. Chest X-Ray 05/03/21 02:38 IMPRESSION: Mildly hyperaerated lungs consistent with deep inspiratory effort vs reactive airway disease vs mild COPD . Lumbar Spine X-Ray 05/03/21 11:12 IMPRESSION: 1. Partial sacralization of the left portion of L5 with unilateral left-sided articulation which can be a source of chronic low back pain. 2. Grade 1 anterior non-spondylitic spondylolisthesis of L4 on L5 with probable central spinal stenosis and prominent facet degenerative changes. 3. Mild lumbar spondylosis. Cervical Spine X-Ray 05/03/21 11:13 IMPRESSION: 1. Bilateral C3, C4, C5 and C6 posterior pedicular screws with additional thoracic pedicular screws and vertical stabilization bar. 2. C7 is partially visualized with nonvisualization of the levels below C7. 3. No acute findings. Thoracic Spine X-Ray 05/03/21 14:02 IMPRESSION: 1. Bilateral posterior pedicular screws involving C3, C4, C5 and C6 along with T2 and T3 with vertical stabilization bar. 2. No acute spine findings. Hip/Pelvis X-Ray 05/04/21 10:37 IMPRESSION: No acute findings. Laboratory Results WBC 9.2 10^3/uL (4.0-10.0) 05/06/21 05:02 RBC 3.38 10^6/uL (4.1-5.3) L 05/06/21 05:02 Hgb 10.9 g/dL (11.5-15.3) L 05/06/21 05:02 Hct 31.8 % (37.0-47.0) L 05/06/21 05:02 MCV 94.1 fl (81-99) 05/06/21 05:02 MCH 32.2 pg (28.0-34.0) 05/06/21 05:02 MCHC 34.3 g/dL (30.0-36.0) D 05/06/21 05:02 RDW 16.2 % (12.1-15.1) H 05/06/21 05:02 Plt Count 315 10^3/cmm (130-400) 05/06/21 05:02 MPV 10.1 fL (7.4-10.4) 05/06/21 05:02 Neut % (Auto) 60.3 % 05/06/21 05:02 Lymph % (Auto) 25.3 % 05/06/21 05:02 [place] % (Auto) 8.3 % 05/06/21 05:02 Eos % (Auto) 5.0 % 05/06/21 05:02 Baso % (Auto) 0.4 % 05/06/21 05:02 Neut # (Auto) 5.56 10^3/uL (1.8-7.7) 05/06/21 05:02 Lymph # (Auto) 2.3 10^3/uL (0.8-4.8) 05/06/21 05:02 [place] # (Auto) 0.8 10^3/uL (0.2-0.9) 05/06/21 05:02 Eos # (Auto) 0.5 10^3/uL (0.0-0.8) 05/06/21 05:02 Baso # (Auto) 0.0 10^3/uL (0.0-0.1) 05/06/21 05:02 Nucleated RBC % (auto) 0 % 05/06/21 05:02 Nucleated RBCs # 0.0 /100WBC 05/06/21 05:02 PT 13.60 SECONDS (12.1-14.9) 05/03/21 03:15 INR 1.01 (0.8-1.2) 05/03/21 03:15 APTT 20.3 SECONDS (23.9-36.7) L 05/03/21 03:15 Sodium 141 mmol/L (136-145) 05/06/21 05:02 Potassium 4.0 mmol/L (3.5-5.1) 05/06/21 05:02 Chloride 109 mmol/L (98-107) H 05/06/21 05:02 Carbon Dioxide 21 mmol/L (22-29) L 05/06/21 05:02 Anion Gap 15.0 (5-19) 05/06/21 05:02 BUN 6 mg/dL (6-20) 05/06/21 05:02 Creatinine 0.6 mg/dL (0.5-0.9) 05/06/21 05:02 GFR Calculation 102.3 mL/min (90-130) 05/06/21 05:02 Glucose 92 mg/dL (65-115) 05/06/21 05:02 Calculated Osmolality 289 mOsm/kg (285-295) 05/06/21 05:02 Lactate 2.2 mmol/L (0.5-2.2) 05/03/21 03:15 Lactate Cancelled 05/03/21 03:15 Calcium 7.5 mg/dL (8.5-10.5) L 05/06/21 05:02 Phosphorus 2.7 mg/dL (2.5-4.5) 05/04/21 05:36 Magnesium 1.6 mg/dL (1.7-2.3) L 05/04/21 05:36 Total Bilirubin 0.2 mg/dL (0.15-1.2) 05/06/21 05:02 AST 15 U/L (0-32) 05/06/21 05:02 ALT 16 U/L (0-33) 05/06/21 05:02 Alkaline Phosphatase 100 IU/L (35-105) 05/06/21 05:02 Ammonia 22 umol/L (11-51) 05/03/21 03:15 Creatine Kinase 583 U/L (26-192) H* 05/03/21 03:15 Total Protein 4.8 g/dL (6.6-8.7) L D 05/06/21 05:02 Albumin 3.0 g/dL (3.5-5.2) L 05/06/21 05:02 Globulin 1.8 g/dL (1.3-4.6) 05/06/21 05:02 Procalcitonin 0.66 ng/mL (0-0.5) H 05/03/21 03:15 TSH 0.82 uIU/mL (0.27-4.20) 05/03/21 03:15 Urine Color Yellow (Yellow) 05/03/21 04:07 Urine Appearance Sl cloudy (CLEAR) A 05/03/21 04:07 Urine pH 5 (5-7) 05/03/21 04:07 Ur Specific [place] 1.020 (1.005-1.030) 05/03/21 04:07 Urine Protein 1+ (Negative) H 05/03/21 04:07 Urine Glucose (UA) Norm (Normal) 05/03/21 04:07 Urine Ketones 1+ (Negative) H 05/03/21 04:07 Urine Blood 2+ (Negative) H 05/03/21 04:07 Urine Nitrate Positive (Negative) H 05/03/21 04:07 Urine Bilirubin Neg (Negative) 05/03/21 04:07 Urine Urobilinogen Norm mg/dL (Negative) 05/03/21 04:07 Ur Leukocyte Esterase Negative (Negative) 05/03/21 04:07 Urine RBC 0-4 /hpf (0-2) H 05/03/21 04:07 Urine WBC 0-4 /hpf (0-5) H 05/03/21 04:07 Ur Squamous Epith Cells 0-4 /hpf (0-5) H 05/03/21 04:07 Amorphous Sediment Not Reportable 05/03/21 04:07 Urine Bacteria 4+ /hpf (NONE) H 05/03/21 04:07 Urine Opiates Screen Positive ng/mL (Negative) H 05/03/21 04:07 Ur Barbiturates Screen Negative ng/mL (Negative) 05/03/21 04:07 Ur Phencyclidine Scrn Negative ng/mL (Negative) 05/03/21 04:07 Ur Amphetamines Screen Negative ng/mL (Negative) 05/03/21 04:07 U Benzodiazepines Scrn Negative ng/mL (Negative) 05/03/21 04:07 Urine Cocaine Screen Negative ng/mL (Negative) 05/03/21 04:07 U Marijuana (THC) Screen Negative ng/mL (Negative) 05/03/21 04:07 Ethyl Alcohol < 10 mg/dL (0-10) 05/03/21 03:15 Vitals Last Vital Signs Temp 97.8 F 05/06/21 11:46 Pulse 63 05/06/21 11:46 Resp 16 05/06/21 11:46 BP 137/89 05/06/21 11:46 Pulse Ox 96 05/06/21 11:46 Discharge Plan Discharge Patient Disposition: Home Condition: Stable Prescriptions: New multivitamin with folic acid [Thera] 400 mcg Tablet 1 tab PO DAILY 30 Days Qty: 30 0RF docusate sodium 100 mg Capsule 100 mg PO BID 30 Days Qty: 60 0RF polyethylene glycol 3350 17 gram Powder In Packet 17 g PO DAILY 30 Days Qty: 30 0RF thiamine mononitrate (vit B1) [Vitamin B-1 (mononitrate)] 100 mg Tablet 100 mg PO DAILY 30 Days Qty: 30 0RF sulfamethoxazole-trimethoprim [Bactrim DS] 800-160 mg tablet 1 tab PO BID 5 Days Qty: 10 0RF Continued baclofen 20 mg Tablet 20 mg PO TID 0RF hydrocodone-acetaminophen 10-325 mg Tablet 1 tab PO Q8H PRN (Reason: Pain) 0RF sertraline 25 mg Tablet 25 mg PO DAILY 0RF propranolol 20 mg Tablet 20 mg PO BID 0RF buspirone 15 mg Tablet 15 mg PO TID 0RF gabapentin 400 mg Tablet 400 mg PO TID 0RF Discharge Orders: Discharge Order (Routine); Ordered 05/06/21 Ordered By: Nasim Gould Discharge Diet: Regular and Cardiac Discharge Activity: Resume usual activity Patient Instructions: Opioid Safety Activity Restrictions/Additional Instructions: -Please abstain from alcohol consumption -Please use antibiotics as prescribed for UTI -Please hydrate well -Follow-up with primary care provider in 1 week Discharge Attestations Time Spent in Discharge Care*: less than 30 min Quality Metrics Clinical Quality Measures [ No reported AMI, CVA or VTE this stay] Coding Level of Care Code Acute Chg [facility] note Diagnoses Alcohol withdrawal F10.239 Fall W19.XXXA Altered mental status R41.82 UTI (urinary tract infection) N39.0 Rhabdomyolysis M62.82 Burn T30.0
== END 2021-05-06 14:47 | disposition home or self-care (01) | DRG 897 ==
LOC: ER 05:19 → MEDSURG 07:30
PROVIDERS: Admitting Provider Student in an Organized Health Care Education/Training Program; Emergency Provider Emergency Medicine; Visit Provider Family Medicine
DX: F10.239 Alcohol dependence with withdrawal, unspecified (principal); N39.0 Urinary tract infection, site not specified; M62.82 Rhabdomyolysis; Y90.9 Presence of alcohol in blood, level not specified; F41.9 Anxiety disorder, unspecified; Z79.891 Long term (current) use of opiate analgesic; G89.29 Other chronic pain; W19.XXXA Unspecified fall, initial encounter; M24.542 Contracture, left hand; F32.A Depression, unspecified; F17.210 Nicotine dependence, cigarettes, uncomplicated; T22.022A Burn of unspecified degree of left elbow, initial encounter; T22.021A Burn of unspecified degree of right elbow, initial encounter; T24.022A Burn of unspecified degree of left knee, initial encounter; T24.021A Burn of unspecified degree of right knee, initial encounter; X08.8XXA Exposure to other specified smoke, fire and flames, initial encounter; Z87.81 Personal history of (healed) traumatic fracture; E87.6 Hypokalemia; B96.20 Unspecified Escherichia coli [E. coli] as the cause of diseases classified elsewhere
CPT/HCPCS: 36415; 51702; 70450; 71045; 72020; 72100; 73521; 73522; 80053; 80306; 80307; 81001; 82140; 82550; 83605; 83735; 84100; 84145; 84443; 85025; 85610; 85730; 87040; 87077; 87086; 87186; 93005; 94664; 96372; 97110; 97116; 97161; 97165; 97530; 97535; C9113; J0696; J1630; J3411; J3480; J7030

== ENCOUNTER 2021-10-28 00:39 | Inpatient (IN) | payer MEDICAID, SELFPAY ==
[2021-10-28] VITALS (9 sets, daily range): BP systolic 138; BP diastolic 84; PULSE 58–76; RESP 16–18; TEMP 36.8–37; O2SAT 93–100; BMI 24.4
--- NOTE | 2021-10-28 00:42 | CTR_ITS ---
PROCEDURE INFORMATION: Exam: CT Head Without Contrast Exam date and time: 10/28/2021 1:00 AM Age: 61 years old Clinical indication: Altered mental status/memory loss; Patient HX: Hallucinations. History of schizophrenia. ; Additional info: AMS TECHNIQUE: Imaging protocol: Computed tomography of the head without contrast. Radiation optimization: All CT scans at this facility use at least one of these dose optimization techniques: automated exposure control; mA and/or kV adjustment per patient size (includes targeted exams where dose is matched to clinical indication); or iterative reconstruction. COMPARISON: CT head wo con* [id number] 05/03/2021 3:58 AM RADIATION DOSE METRICS: Total DLP (mGy-cm): 541.48 FINDINGS: Brain: Normal. No hemorrhage. Unremarkable white matter. No mass effect. Cerebral ventricles: No ventriculomegaly. Paranasal sinuses: Visualized sinuses are unremarkable. No fluid levels. Mastoid air cells: Visualized mastoid air cells are well aerated. Bones/joints: Unremarkable. No acute fracture. Soft tissues: Unremarkable. CT/CT head wo con* [id number] IMPRESSION: No acute intracranial abnormality.
--- NOTE | 2021-10-28 00:44 | W.ED.PSYCHS ---
HPI - Psych General: Chief Complaint: Psychiatric Symptoms Stated Complaint: hearing voices Time Seen by Provider: 10/28/21 00:39 Source: patient and EMS Mode of arrival: EMS Limitations: no limitations History of Present Illness: 61-year-old female who is here with EMS with a history of schizophrenia with hallucinations. Patient called in the night she did believe that people been in her house and planting drugs and trying to set her up. Patient here has very pressured speech and is extremely paranoid. She denies any suicidal homicidal ideations denies any worsening proving factors. Associated symptoms: Reports auditory hallucinations and visual hallucinations Review of Systems Const: Denies: fever(s), chills, body aches or change in appetite Eyes: Denies: blurry vision or eye discomfort ENMT: Denies: throat pain or dental pain Card: Denies: chest pain Resp: Denies: dyspnea GI: Denies: abdominal pain, nausea, vomiting or diarrhea : Denies: dysuria Musc: Denies: neck pain or back pain Skin/Breast: Denies: rash Neuro: Denies: headache(s) Psych: Reports: paranoia, visual hallucinations and auditory hallucinations Hubert/Lymph: Denies: easy bruising All/Imm: Denies: urticaria PFSH ED PFSH: Medical History Flexion contracture of joint of left hand History of alcoholism History of cervical fracture History of depression Surgical History History of hysterectomy Social History Smoking and tobacco status: current every day smoker Alcohol intake: current Physical Exam Const: COMMON NORMALS: patient oriented x3 GENERAL APPEARANCE: disheveled HENMT: COMMON NORMALS: normocephalic and atraumatic HEAD & SCALP: normocephalic and atraumatic Eye: COMMON NORMALS: Equal, round and reactive pupils present and EOMs intact bilaterally PUPIL: Yes Equal, round and reactive pupils present Neck/C-Spine: COMMON NORMALS: full ROM and supple Chest: COMMONS NORMALS: normal inspection of the chest and normal palpation of entire chest wall Resp: COMMON NORMALS: normal respiratory effort, No retractions, No use of accessory muscles and clear to auscultation bilaterally AUSCULTATION: clear to auscultation bilaterally Cardio: COMMON NORMALS: regular rate, regular rhythm and No murmurs present (Cardio) RATE: regular rate RHYTHM: regular rhythm GI: COMMON NORMALS: Normal to inspection, nondistended, normoactive bowel sounds present, Soft to palpation, non-tender and no masses PALPATION: Yes Soft to palpation Extremity: COMMON NORMALS: normal to inspection and full ROM Neuro: COMMON NORMALS: patient oriented x3, moves all extremities and no focal motor deficits Psych: APPEARANCE: Yes disheveled ACTIVITY/MOTOR BEHAVIOR: Yes psychomotor agitation and Yes fidgeting SPEECH: Yes rapid THOUGHT CONTENT: Yes Hallucination(s) present Skin: COMMON NORMALS: no rashes or lesions noted and no wounds GENERAL SKIN EXAM: no rashes or lesions noted Course Vital Signs: Vital signs: Vital Signs Temperature 98.3 F 10/28/21 00:43 Pulse Rate 63 10/28/21 03:55 Respiratory Rate 18 10/28/21 03:55 Blood Pressure 138/84 10/28/21 00:43 Pulse Oximetry 97 10/28/21 03:55 Oxygen Delivery Me thod 10/28/21 03:55 MDM - Psych Medical Decision Making Patient presents to the history of schizophrenia appears to be acutely psychotic she is quite paranoid with hallucinations patient placed on a 96-hour hold she is medically cleared I spoke to psychiatrist and will admit. Lab Data : 10/28/21 00:50 10/28/21 00:[address] 10/28/21 00:42 IMPRESSION: No acute intracranial abnormality. Chest X-Ray 10/28/21 04:39 IMPRESSION: Negative exam. No change from comparison. Laboratory Results WBC 8.7 10^3/uL (4.0-10.0) 10/28/21 00:50 RBC 3.70 10^6/uL (4.1-5.3) L 10/28/21 00:50 Hgb 11.5 g/dL (11.5-15.3) 10/28/21 00:50 Hct 36.7 % (37.0-47.0) L 10/28/21 00:50 MCV 99.2 fl (81-99) H 10/28/21 00:50 MCH 31.1 pg (28.0-34.0) 10/28/21 00:50 MCHC 31.3 g/dL (30.0-36.0) 10/28/21 00:50 RDW 13.4 % (12.1-15.1) 10/28/21 00:50 Plt Count 259 10^3/cmm (130-400) 10/28/21 00:50 MPV 10.4 fL (7.4-10.4) 10/28/21 00:50 Neut % (Auto) 56.8 % 10/28/21 00:50 Lymph % (Auto) 29.2 % 10/28/21 00:50 [place] % (Auto) 9.4 % 10/28/21 00:50 Eos % (Auto) 3.8 % 10/28/21 00:50 Baso % (Auto) 0.5 % 10/28/21 00:50 Neut # (Auto) 4.95 10^3/uL (1.8-7.7) 10/28/21 00:50 Lymph # (Auto) 2.5 10^3/uL (0.8-4.8) 10/28/21 00:50 [place] # (Auto) 0.8 10^3/uL (0.2-0.9) 10/28/21 00:50 Eos # (Auto) 0.3 10^3/uL (0.0-0.8) 10/28/21 00:50 Baso # (Auto) 0.0 10^3/uL (0.0-0.1) 10/28/21 00:50 Nucleated RBC % (auto) 0 % 10/28/21 00:50 Nucleated RBCs # 0.0 /100WBC 10/28/21 00:50 Sodium 141 mmol/L (136-145) 10/28/21 00:50 Potassium 4.0 mmol/L (3.5-5.1) 10/28/21 00:50 Chloride 110 mmol/L (98-107) H 10/28/21 00:50 Carbon Dioxide 17 mmol/L (22-29) L 10/28/21 00:50 Anion Gap 18.0 (5-19) 10/28/21 00:50 BUN 12 mg/dL (6-20) 10/28/21 00:50 Creatinine 0.6 mg/dL (0.5-0.9) 10/28/21 00:50 GFR Calculation 102.3 mL/min (90-130) 10/28/21 00:50 Glucose 97 mg/dL (65-115) 10/28/21 00:50 Calculated Osmolality 292 mOsm/kg (285-295) 10/28/21 00:50 Calcium 8.9 mg/dL (8.5-10.5) 10/28/21 00:50 Total Bilirubin 0.4 mg/dL (0.15-1.2) 10/28/21 00:50 AST 20 U/L (0-32) 10/28/21 00:50 ALT 13 U/L (0-33) 10/28/21 00:50 Alkaline Phosphatase 105 U/L (35-105) 10/28/21 00:50 Total Protein 6.4 g/dL (6.6-8.7) L 10/28/21 00:50 Albumin 3.6 g/dL (3.5-5.2) 10/28/21 00:50 Globulin 2.8 g/dL (1.3-4.6) 10/28/21 00:50 TSH 2.53 uIU/mL (0.27-4.20) 10/28/21 00:50 Urine Color Yellow (Yellow) 10/28/21 03:51 Urine Appearance Cloudy (CLEAR) 10/28/21 03:51 Urine pH 7 (5-7) 10/28/21 03:51 Ur Specific [place] 1.005 (1.005-1.030) 10/28/21 03:51 Urine Protein Neg (Negative) 10/28/21 03:51 Urine Glucose (UA) Norm (Normal) 10/28/21 03:51 Urine Ketones Negative (Negative) 10/28/21 03:51 Urine Blood Trace (Negative) H 10/28/21 03:51 Urine Nitrate Negative (Negative) 10/28/21 03:51 Urine Bilirubin Neg (Negative) 10/28/21 03:51 Urine Urobilinogen Norm mg/dL (Negative) 10/28/21 03:51 Ur Leukocyte Esterase 1+ (Negative) H 10/28/21 03:51 Urine RBC 0-4 /hpf (0-2) H 10/28/21 03:51 Urine WBC 0-4 /hpf (0-5) H 10/28/21 03:51 Ur Squamous Epith Cells 25-40 /hpf (0-5) H 10/28/21 03:51 Amorphous Sediment Not Reportable 10/28/21 03:51 Urine Bacteria 1+ /hpf (NONE) H 10/28/21 03:51 Salicylates < 0.3 mg/dL (3-10) L 10/28/21 00:50 Urine Opiates Screen Positive ng/mL (Negative) H 10/28/21 03:51 Acetaminophen 6.2 ug/mL (10-30) L 10/28/21 00:50 Ur Barbiturates Screen Negative ng/mL (Negative) 10/28/21 03:51 Ur Phencyclidine Scrn Negative ng/mL (Negative) 10/28/21 03:51 Ur Amphetamines Screen Negative ng/mL (Negative) 10/28/21 03:51 U Benzodiazepines Scrn Positive ng/mL (Negative) H 10/28/21 03:51 Urine Cocaine Screen Negative ng/mL (Negative) 10/28/21 03:51 U Marijuana (THC) Screen Positive ng/mL (Negative) H 10/28/21 03:51 Ethyl Alcohol < 10 mg/dL (0-10) 10/28/21 00:50 EKG Data EKG 1: I personally reviewed and interpreted this EKG as follows: EKG interpretation date: 10/28/21 EKG interpretation time: 01:26 Interpretation: nsr hr [address] or t wave aanormalities qrs 81 qtc 440 Discharge Plan Discharge Patient Disposition: Admitted As Inpatient Clinical Impression: Acute psychosis Condition: Stable Coding Level of Care Code ED Police Detention Attendant for Quentin Fwd Exam Comprehensive
[2021-10-28] MEDS: LORazepam 1 mg Tablet PO ×2 (00:55→16:23)
[2021-10-28] MEDS: ziprasidone 20 mg/mL SDV IM (00:56)
[2021-10-28 00:58] LABS: Basophils % 0.5 %; Eosinophils # 0.3 10^3/uL (0.0-0.8); Eosinophils % 3.8 %; Hematocrit 36.7 % (37.0-47.0); Hemoglobin 11.5 g/dL (11.5-15.3); Lymphocytes # 2.5 10^3/uL (0.8-4.8); Lymphocytes % 29.2 %; Mean Corpuscular HGB Conc 31.3 g/dL (30.0-36.0); Mean Corpuscular Hemoglobin 31.1 pg (28.0-34.0); Mean Corpuscular Volume 99.2 fl (81-99); Mean Platelet Volume 10.4 fL (7.4-10.4); Monocytes # 0.8 10^3/uL (0.2-0.9); Monocytes % 9.4 %; Neutrophils # 4.95 10^3/uL (1.8-7.7); Neutrophils % 56.8 %; Nucleated Red Blood Cells % 0 %; Platelet Count 259 10^3/cmm (130-400); Red Cell Distribution Width 13.4 % (12.1-15.1); White Blood Count 8.7 10^3/uL (4.0-10.0)
--- NOTE | 2021-10-28 01:26 | ECG_ITS ---
[facility] Test Date: 2021-10-28 Pat Name: Anastasiya Puga Department: Room: Gender: Female Dock Clerk: : 1960 Requested By: Gosia Bahena Order Number: [id number] Margy MD: Basia Coles M.D. Measurements Intervals [place] Rate: 64 P: 56 PA: 168 QRS: 35 QRSD: 81 T: 6 QT: 431 QTc: 446 Interpretive Statements SINUS RHYTHM Compared to ECG 05/03/2021 04:15:25 T-wave abnormality no longer present Electronically Signed On 10-28-2021 16:35:22 CDT by Basia Coles M.D. [email or web address]
[2021-10-28 01:41] LABS: Acetaminophen 6.2 ug/mL (10-30); Alanine Aminotransferase 13 U/L (0-33); Albumin Level 3.6 g/dL (3.5-5.2); Alkaline Phosphatase 105 U/L (35-105); Aspartate Amino Transferase 20 U/L (0-32); Blood Urea Nitrogen 12 mg/dL (6-20); Calcium 8.9 mg/dL (8.5-10.5); Carbon Dioxide 17 mmol/L (22-29); Chloride 110 mmol/L (98-107); Globulin 2.8 g/dL (1.3-4.6); Glomerular Filtration Rate 102.3 mL/min (90-130); Glucose 97 mg/dL (65-115); Osmolality Calculated 292 mOsm/kg (285-295); Sodium 141 mmol/L (136-145); Thyroid Stimulating Hormone 2.53 uIU/mL (0.27-4.20); Total Bilirubin 0.4 mg/dL (0.15-1.2); Total Protein 6.4 g/dL (6.6-8.7)
[2021-10-28 01:48] LABS: Alcohol Level < 10 mg/dL (0-10); Salicylate < 0.3 mg/dL (3-10)
[2021-10-28 04:25] LABS: Amphetamines Screen Urine Negative (Negative); Barbiturates Screen Urine Negative (Negative); Benzodiazepines Screen Urine Positive (Negative); Cocaine Screen Urine Negative (Negative); Opiate Screen Urine Positive (Negative); PCP Screen Urine Negative (Negative); THC Screen Urine Positive (Negative)
[2021-10-28 04:29] LABS: Add Urine Microscopic? YES; Bacteria Urine 1+ /hpf; Bilirubin Urine Neg (Negative); Blood Urine Trace (Negative); Glucose Urine UA Norm (Normal); Ketones Urine Negative (Negative); Leukocyte Esterase Urine 1+ (Negative); Nitrate Urine Negative (Negative); Protein Urine Neg (Negative); RBC Urine 0-4 /hpf (0-2); Specific Gravity, Urine 1.005 (1.005-1.030); Squamous Epithelial Cell Urine 25-40 /hpf (0-5); Urine Appearance Cloudy (CLEAR); Urine Color Yellow (Yellow); Urobilinogen Urine Norm (Negative); WBC Urine 0-4 /hpf (0-5); pH Urine 7 (5-7)
--- NOTE | 2021-10-28 04:39 | XRR_ITS ---
PROCEDURE INFORMATION: Exam: XR Chest Exam date and time: 10/28/2021 4:43 AM Age: 61 years old Clinical indication: Screening exam; Other screening; Prior surgery; Surgery type: Cervical fusion. Patient HX: Medical clearance for psych transfer TECHNIQUE: Imaging protocol: Radiologic exam of the chest. Views: 1 view. COMPARISON: CR (CHEST, ) 05/03/2021 2:47 AM FINDINGS: Lungs: Unremarkable. No consolidation. Pleural spaces: Unremarkable. No pleural effusion. No pneumothorax. Heart/Mediastinum: Unremarkable. No cardiomegaly. Bones/joints: Multilevel posterior cervical spine fusion hardware is present. Negative for acute thoracic fracture. XR/XR chest 1V portable [id number] IMPRESSION: Negative exam. No change from comparison.
[2021-10-28 05:05] LABS: SARS Covid-2 Antigen Negative (Negative)
--- NOTE | 2021-10-28 07:05 | PC.NURSE ---
pt asleep in bed, remains in line of sight of sitter
--- NOTE | 2021-10-28 08:46 | PC.PHAR ---
medications entered are from the medication bottles the pt brought in-notes are made in the pharmacy comments with rx bottle dates-only medication entered that the pt didnt bring in was the naloxone ext med history shows last filled 02/04/21-
--- NOTE | 2021-10-28 10:21 | PC.NURSE ---
pt laying in bed, appears to be reaching for something in the air. introduced self to pt, pt does not believe that I was a nurse. Pt oriented to self only. when asked where she was, pt replied that she was in the looney bin in ICU. pt talking about alligators and rattlesnakes everywhere and that her children are trying to kill her. Assisted pt to bedside commode. Pt observed to be incontinent of urine. Mehreen care provided. Linens and clothing changed. Assisted pt back to bed and gave pt cup of ice water per request.
[2021-10-28] MEDS: OLANZapine 5 mg ODT PO ×2 (12:38→20:19)
--- NOTE | 2021-10-28 12:44 | PC.NURSE ---
pt yelling out. talking about tape on the TV and a dog in the room with a mustache.
--- NOTE | 2021-10-28 12:55 | PC.NURSE ---
report called to TERRI Beverly NPU
--- NOTE | 2021-10-28 13:37 | PC.NURSE ---
attempted to give pt food tray. pt declined staff assistance with feeding.
--- NOTE | 2021-10-28 13:38 | PC.NURSE ---
pt not eating lunch due to believing pears were eyeballs and her green beans were boys.
[2021-10-28] MEDS: haloperidol 5 mg Tablet PO (13:57)
[2021-10-28] MEDS: hyDROXYzine 25 mg Capsule 50 MG PO (13:57)
--- NOTE | 2021-10-28 14:22 | PC.NURSE ---
Administered 5mg Haldol and 50mg Vistarl,for pt experiencing hallucinations.
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
--- NOTE | 2021-10-28 16:23 | PC.NURSE ---
Administered 1 mg Ativan PO for pt scoring 24 on CIWA scale.
[2021-10-28] MEDS: HYDROcodone-acetaminophen 10-325 mg Tablet 1 TAB PO (16:32)
[2021-10-28] MEDS: gabapentin 400 mg Capsule 800 MG PO (20:19)
[2021-10-28] MEDS: quetiapine 100 mg Tablet 200 MG PO (20:19)
[2021-10-28] MEDS: trazodone 50 mg Tablet PO (20:19)
[2021-10-28] MEDS: baclofen 10 mg Tablet 20 MG PO (20:19)
[2021-10-29] MEDS: HYDROcodone-acetaminophen 10-325 mg Tablet 1 TAB PO ×4 (04:14→22:43)
[2021-10-29] MEDS: cyclobenzaprine 10 mg Tablet PO ×2 (04:14→22:43)
[2021-10-29 06:00] VITALS: BP 136/97; PULSE 87; RESP 18; TEMP 36.3; O2SAT 95
--- NOTE | 2021-10-29 06:54 | PC.NURSE ---
patient states still having bugs all over her. denies being SI or HI. at this time. denies depression.
[2021-10-29] MEDS: fluoxetine 20 mg Capsule PO (07:59)
[2021-10-29] MEDS: gabapentin 400 mg Capsule 800 MG PO ×3 (07:59→21:40)
[2021-10-29] MEDS: folic acid 1 mg Tablet PO (07:59)
[2021-10-29] MEDS: docusate sodium 100 mg Capsule PO (07:59)
[2021-10-29] MEDS: multivitamin therapeutic Tablet 1 TAB PO (07:59)
[2021-10-29] MEDS: lisinopril 10 mg Tablet PO (07:59)
[2021-10-29] MEDS: baclofen 10 mg Tablet 20 MG PO ×3 (07:59→21:40)
[2021-10-29] MEDS: propranolol 20 mg Tablet PO ×2 (07:59→21:40)
[2021-10-29] MEDS: LORazepam 1 mg Tablet PO ×2 (08:05→18:32)
[2021-10-29] MEDS: neomycin-poly-bacitracin oint 28 gm 1 APPLIC TOPICAL ×2 (09:31→18:06)
[2021-10-29 14:00] VITALS: BP 92/67; PULSE 85; RESP 17; TEMP 36.4; O2SAT 98
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
--- NOTE | 2021-10-29 18:40 | W.PM.NPUPNS ---
Subjective NPU Subjective: Patient is a 61-year-old white female admitted with psychotic symptoms who was placed on a alcohol withdrawal protocol. She appeared much better today as she was not having as many complaints of her legs being invaded by ants. She was more alert and redirectable on the milieu. She had acknowledged drinking a significant mount of alcohol 3days prior to arriving at the emergency room. The patient had reported that she was not using any of the medications she was prescribed for anxiety. Mental Status Exam MSE Comments: This is a confused white female who appeared older than her stated age she was alert to person, place along with year, month, but not day of week. She was sitting in her bed appeared less agitated and annoyed. Her hygiene was poor. Her speech was monotone in quality and loud. She continued to report that ants were crawling on her legs. She denied any auditory hallucinations today. Her mood was described as better. Her affect was brighter. There was clear evidence of a hallucinatory parasitosis. Her insight appeared impaired. her judgment was poor. her impulse control was poor. Her recent and remote memory are also impaired. She is unable to register 3 words without significant prompting. She was unable to recall 3 words after 5 minutes. Vitals/I&O/Wt Last Vital Signs Temp 97.6 F 10/29/21 14:00 Pulse 85 10/29/21 14:00 Resp 17 10/29/21 14:00 BP 92/67 10/29/21 14:00 Pulse Ox 98 10/29/21 14:00 O2 Del Method 10/29/21 14:00 Weight last 48 hrs Weight 62.596 kg Data NPU : 10/28/21 00:50 10/28/21 00:50 A&P Assessment and plan (1) Delusions of parasitosis: Status: Acute (2) Altered mental status: Status: Acute (3) Formication: Status: Acute Plan Anastasiya is a 61-year-old white female who appears to have altered mental status. It is uncertain as to whether she has a active [place] I diagnosis suggestive of schizophrenia but appears to have more significant concerns regarding her mental status which may be due to medical causes at this time including alcohol withdrawal urinary tract infection. We will attempt to gather collateral information to elucidate at this time is that she does not appear to have any inpatient hospitalizations here and has been treated with antidepressants. #1. Engage patient in individual milieu and group therapy #2. Therapeutic observation 15-minute checks on the milieu. #3 Continue Prozac as prescribed #4 we will attempt to gather collateral information and monitor closely #5 Place patient on alcohol withdrawal protocol Involuntary Hold Information 96 Hour Hold: 96 Hour Involuntary Admission: Yes 96 Hour Hold Ending Date: 11/03/21 96 Hour Hold Ending Time: 13:24 Attestations NPU Medical Necessity Statement*: The patient will require inpatient psychiatric hospitalization expected to exceed 2 midnights with likely length of stay for 5 to 7 days. 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
[2021-10-29] MEDS: quetiapine 100 mg Tablet 200 MG PO (21:40)
[2021-10-29] MEDS: trazodone 50 mg Tablet PO (21:41)
[2021-10-29] MEDS: risperiDONE 1 mg Tablet 0.5 MG PO (21:41)
[2021-10-29 22:00] VITALS: BP 106/73; PULSE 78; RESP 16; TEMP 36.4; O2SAT 98
[2021-10-29] MEDS: OLANZapine 5 mg ODT PO (22:44)
[2021-10-29] MEDS: magnesium hydroxide 30 mL UDC 15 ML PO (23:21)
[2021-10-30 06:00] VITALS: BP 124/79; PULSE 77; RESP 16; O2SAT 97
[2021-10-30] MEDS: LORazepam 1 mg Tablet PO ×2 (06:39→13:44)
[2021-10-30] MEDS: haloperidol 5 mg Tablet PO ×2 (06:40→20:37)
[2021-10-30] MEDS: propranolol 20 mg Tablet PO ×2 (10:41→20:34)
[2021-10-30] MEDS: fluoxetine 20 mg Capsule PO (10:42)
[2021-10-30] MEDS: HYDROcodone-acetaminophen 10-325 mg Tablet 1 TAB PO ×2 (10:42→20:35)
[2021-10-30] MEDS: multivitamin therapeutic Tablet 1 TAB PO (10:42)
[2021-10-30] MEDS: folic acid 1 mg Tablet PO (10:42)
[2021-10-30] MEDS: gabapentin 400 mg Capsule 800 MG PO ×3 (10:43→20:34)
[2021-10-30] MEDS: docusate sodium 100 mg Capsule PO (10:43)
[2021-10-30] MEDS: lisinopril 10 mg Tablet PO (10:43)
[2021-10-30] MEDS: baclofen 10 mg Tablet 20 MG PO ×3 (10:43→20:33)
--- NOTE | 2021-10-30 10:43 | PC.NURSE ---
refused scheduled Neosporin ointment
--- NOTE | 2021-10-30 11:22 | W.PM.NPUPNS ---
Subjective NPU Subjective: Patient presents today reporting initially that she was independently functioning at her apartment prior to admission. We discussed the fact that looking at her current functioning that is fairly impossible. During the session she was incapable of putting on shoes that were essentially slip-on's during the time of our talk. Questioning about eating, how she took her plate or food from preparation area to a table revealed limitations. How she could bathe/do basic hygiene etc. more limitations. She the subtype of the circulating nurses detention scenario would be best for her. Mental Status Exam MSE Comments: This is a well-nourished white female in hospital scrubs with limited grooming but adequate eye contact. Hands in a balled position never being extended for dexterity to assist in the tasks she was trying to accomplish. Sitting on side of bed with a rolling walker nearby. Needing great effort to go from laying down to sitting on the side of the bed. Cooperative with exam in no acute distress. Speech was decreased rate and volume. Mood described as okay, affect appeared congruent. Thought process organized. Thought content: Patient denied suicidal or homicidal ideation, no delusions reported or noted, she denied any auditory or visual hallucinations. Attention concentration appeared intact and memory appeared mostly reliable but none were formally tested. She alert and oriented x3. Insight and judgment improving, stable control impaired. Vitals/I&O/Wt Last Vital Signs Temp 97.6 F 10/29/21 22:00 Pulse 77 10/30/21 06:00 Resp 16 10/30/21 06:00 BP 124/79 10/30/21 06:00 Pulse Ox 97 10/30/21 06:00 O2 Del Method 10/29/21 22:00 Data NPU : 10/28/21 00:50 10/28/21 00:50 A&P Assessment and plan (1) Delusions of parasitosis: Status: Acute (2) Altered mental status: Status: Acute (3) Formication: Status: Acute Plan Anastasiya is a 61-year-old white female who appears to have altered mental status. It is uncertain as to whether she has a active [place] I diagnosis suggestive of schizophrenia but appears to have more significant concerns regarding her mental status which may be due to medical causes at this time including alcohol withdrawal urinary tract infection. We will attempt to gather collateral information to elucidate at this time is that she does not appear to have any inpatient hospitalizations here and has been treated with antidepressants. #1. Engage patient in individual milieu and group therapy #2. Therapeutic observation 15-minute checks on the milieu. #3 Continue Prozac as prescribed #4 we will attempt to gather collateral information and monitor closely #5 Place patient on alcohol withdrawal protocol Involuntary Hold Information 96 Hour Hold: 96 Hour Involuntary Admission: Yes 96 Hour Hold Ending Date: 11/03/21 96 Hour Hold Ending Time: 13:24 Attestations NPU Medical Necessity Statement*: Inpatient hospitalization is medically necessary and the clinically appropriate dimension at this time. We will monitor medications and make changes as indicated. Likely length of stay 3 to 5 days. Coding Level of Care Code Acute Music Industry Internship for Quentin Connelly Diagnoses Delusions of parasitosis F22 Altered mental status R41.82 Formication R20.2
--- NOTE | 2021-10-30 13:50 | PC.NURSE ---
PRN MEDICATION PT TO NURSES STATION. CIWA WAS ASSESSED. PT C/O HEADACHE, VISUAL AND AUDITORY HALUCINATIONS, DIAPHORETIC AND ITCHING. 1 MG OF ATIVAN WAS GIVEN PER CIWA PROTOCOL. PT THEN WENT TO BED AND IS LAYING DOWN. PT CONTINUES TO SEE BUGS ON THE FLOOR AND CRAWLING ON HER. PT WAS REASSURED THERE WAS NOTHING ON HER AT THIS TIME.
[2021-10-30 14:00] VITALS: BP 102/71; PULSE 72; RESP 18; TEMP 36.7; O2SAT 95
[2021-10-30] MEDS: cyclobenzaprine 10 mg Tablet PO (17:54)
[2021-10-30] MEDS: neomycin-poly-bacitracin oint 28 gm 1 APPLIC TOPICAL (17:55)
[2021-10-30] MEDS: trazodone 50 mg Tablet PO (20:35)
[2021-10-30] MEDS: quetiapine 100 mg Tablet 200 MG PO (20:35)
[2021-10-30] MEDS: risperiDONE 1 mg Tablet 0.5 MG PO (20:37)
[2021-10-30 21:46] VITALS: BP 97/64; PULSE 78; RESP 16; TEMP 36.6; O2SAT 96
[2021-10-31] MEDS: HYDROcodone-acetaminophen 10-325 mg Tablet 1 TAB PO ×3 (01:50→14:41)
[2021-10-31] MEDS: acetaminophen 325 mg Tablet 650 MG PO (05:53)
[2021-10-31] MEDS: haloperidol 5 mg Tablet PO (05:53)
[2021-10-31 06:00] VITALS: BP 124/82; PULSE 73; RESP 17; TEMP 36.3; O2SAT 94
[2021-10-31] MEDS: folic acid 1 mg Tablet PO (08:41)
[2021-10-31] MEDS: gabapentin 400 mg Capsule 800 MG PO ×3 (08:41→21:14)
[2021-10-31] MEDS: fluoxetine 20 mg Capsule PO (08:41)
[2021-10-31] MEDS: propranolol 20 mg Tablet PO ×2 (08:42→21:14)
[2021-10-31] MEDS: lisinopril 10 mg Tablet PO (08:42)
[2021-10-31] MEDS: multivitamin therapeutic Tablet 1 TAB PO (08:42)
[2021-10-31] MEDS: docusate sodium 100 mg Capsule PO (08:42)
[2021-10-31] MEDS: baclofen 10 mg Tablet 20 MG PO ×3 (08:42→21:14)
[2021-10-31] MEDS: OLANZapine 5 mg ODT PO (08:44)
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
--- NOTE | 2021-10-31 11:57 | PC.NURSE ---
Interdisciplinary Orders In meeting with interdisciplinary members, doctor requested an order for occupational and physical therapy. Requested they perform kells test and assess for hand contractures.
[2021-10-31 14:00] VITALS: BP 105/77; PULSE 77; RESP 18; TEMP 36.8; O2SAT 97
--- NOTE | 2021-10-31 18:14 | PC.NURSE ---
PRN MEDS Patient presented to nurse's station this morning and afternoon with back pain rating 7 and 10 respectively. Hydrocodone administered. Patient continues to see frogs and bugs on her floor so zyprexa was administered at 0844.
[2021-10-31 19:15] VITALS: BP 94/66; PULSE 85; RESP 16; TEMP 36.7; O2SAT 95
--- NOTE | 2021-10-31 19:21 | P.NPUPN_ITS ---
Subjective NPU Subjective: Patient presents today reporting that she is starting to feel better than when she first got here. She is little down today as she is identified that the likelihood that returning to her apartment is within her best interest is very low though she does want to return. She acknowledges that it does appear the best thing for her now is for her to go to some facility where they can assist her with her activities of daily living. This was a recommendation of the people currently assisting her a few days a week. She is working with the social work team to identify the best options. Mental Status Exam MSE Comments: This is a well-nourished white female in hospital scrubs with limited grooming but adequate eye contact. Hands in a balled position never being extended for dexterity to assist in the tasks she was trying to accomplish. Sitting on side of bed with a rolling walker nearby. Needing great effort to go from laying down to sitting on the side of the bed. Cooperative with exam in no acute distress. Speech was decreased rate and volume. Mood described as okay, affect appeared congruent. Thought process organized. Thought content: Patient denied suicidal or homicidal ideation, no delusions reported or noted, she denied any auditory or visual hallucinations. Attention concentration appeared intact and memory appeared mostly reliable but none were formally tested. She alert and oriented x3. Insight and judgment improving, impulse control limited by the. Vitals/I&O/Wt Last Vital Signs Temp 98.0 F 10/31/21 19:15 Pulse 85 10/31/21 19:15 Resp 16 10/31/21 19:15 BP 94/66 10/31/21 19:15 Pulse Ox 95 10/31/21 19:15 O2 Del Method 10/31/21 19:15 Data NPU : 10/28/21 00:50 10/28/21 00:50 A&P Assessment and plan (1) Delusions of parasitosis: Status: Acute (2) Altered mental status: Status: Acute (3) Formication: Status: Acute Plan Anastasiya is a 61-year-old white female who appears to have altered mental status. It is uncertain as to whether she has a active [place] I diagnosis suggestive of schizophrenia but appears to have more significant concerns regarding her mental status which may be due to medical causes at this time including alcohol withdrawal urinary tract infection. We will attempt to gather collateral information to elucidate at this time is that she does not appear to have any inpatient hospitalizations here and has been treated with antidepressants. #1. Engage patient in individual milieu and group therapy #2. Therapeutic observation 15-minute checks on the milieu. #3 Continue Prozac as prescribed #4 we will attempt to gather collateral information and monitor closely #5 Place patient on alcohol withdrawal protocol Involuntary Hold Information 96 Hour Hold: 96 Hour Involuntary Admission: Yes 96 Hour Hold Ending Date: 11/03/21 96 Hour Hold Ending Time: 13:24 Attestations NPU Medical Necessity Statement*: Inpatient hospitalization is medically necessary and the clinically appropriate dimension at this time. We will monitor medications and make changes as indicated. Likely length of stay 3 to 5 days. Coding Level of Care Code Acute Auxiliary Powerplant Operator for Quentin Connelly Diagnoses Delusions of parasitosis F22 Altered mental status R41.82 Formication R20.2
[2021-10-31] MEDS: quetiapine 100 mg Tablet 200 MG PO (21:14)
[2021-10-31] MEDS: risperiDONE 1 mg Tablet 0.5 MG PO (21:15)
[2021-11-01] MEDS: HYDROcodone-acetaminophen 10-325 mg Tablet 1 TAB PO ×3 (00:28→12:40)
[2021-11-01] MEDS: haloperidol 5 mg Tablet PO ×2 (00:46→07:36)
[2021-11-01] MEDS: hyDROXYzine 25 mg Capsule 50 MG PO ×3 (00:46→20:26)
[2021-11-01] MEDS: OLANZapine 5 mg ODT PO ×3 (04:20→23:55)
[2021-11-01] MEDS: LORazepam 1 mg Tablet PO (04:20)
[2021-11-01] MEDS: ondansetron 4 MG Tablet PO ×2 (07:10→23:55)
--- NOTE | 2021-11-01 07:22 | PC.PT ---
pt currently to confused to benefit from PT instruction and treatment. Also, order specifics were all OT related. Please re-order when appropriate if PT services are still needed. Thank you
[2021-11-01] MEDS: baclofen 10 mg Tablet 20 MG PO ×3 (07:36→20:25)
[2021-11-01] MEDS: gabapentin 400 mg Capsule 800 MG PO ×3 (07:36→20:25)
[2021-11-01] MEDS: fluoxetine 20 mg Capsule PO (07:36)
[2021-11-01] MEDS: propranolol 20 mg Tablet PO ×2 (07:37→20:25)
[2021-11-01] MEDS: cyclobenzaprine 10 mg Tablet PO ×2 (07:37→20:26)
[2021-11-01] MEDS: lisinopril 10 mg Tablet PO (07:37)
[2021-11-01] MEDS: docusate sodium 100 mg Capsule PO (07:37)
[2021-11-01] MEDS: folic acid 1 mg Tablet PO (07:37)
[2021-11-01] MEDS: multivitamin therapeutic Tablet 1 TAB PO (07:38)
--- NOTE | 2021-11-01 12:42 | PC.NURSE ---
PRN MEDICATION PT UP TO NURSES STATION TEARFUL AND ANXIOUS. ZYDIS 5 MG AND VISTARIL 650 MG GIVEN ORDERED. SUPPORT VOICED.
[2021-11-01 14:00] VITALS: BP 114/81; PULSE 79; RESP 18; TEMP 36.6; O2SAT 94
--- NOTE | 2021-11-01 15:13 | W.PM.NPUPNS ---
Subjective NPU Subjective: Patient is today reporting that she was excepting that she needs to go somewhere but is wishing that it was not going to take the amount of time it is taking. She continues to be somewhat ambivalent about her level of impairment at times and continues to deny that there are other issues like drinking or anything else. We discussed the limited amount of progress that is made on weekends and we will get things back on track Wednesday. Mental Status Exam MSE Comments: This is a well-nourished white female in hospital scrubs with limited grooming but adequate eye contact. Hands in a balled position never being extended for dexterity to assist in the tasks she was trying to accomplish. Moving around unassisted with a rolling walker with some ataxia. Cooperative with exam in no acute distress. Speech was decreased rate and volume. Mood described as okay, affect appeared congruent. Thought process organized. Thought content: Patient denied suicidal or homicidal ideation, no delusions reported or noted, she denied any auditory or visual hallucinations. Attention concentration appeared intact and memory appeared mostly reliable but none were formally tested. She alert and oriented x3. Insight and judgment improving, impulse control limited by the. Vitals/I&O/Wt Last Vital Signs Temp 98 F 11/01/21 14:00 Pulse 79 11/01/21 14:00 Resp 18 11/01/21 14:00 BP 114/81 11/01/21 14:00 Pulse Ox 94 11/01/21 14:00 O2 Del Method 11/01/21 14:00 Weight last 48 hrs Weight 62.596 kg Data NPU : 10/28/21 00:50 10/28/21 00:50 A&P Assessment and plan (1) Delusions of parasitosis: Status: Acute (2) Altered mental status: Status: Acute (3) Formication: Status: Acute Plan Anastasiya is a 61-year-old white female who appears to have altered mental status. It is uncertain as to whether she has a active [place] I diagnosis suggestive of schizophrenia but appears to have more significant concerns regarding her mental status which may be due to medical causes at this time including alcohol withdrawal urinary tract infection. We will attempt to gather collateral information to elucidate at this time is that she does not appear to have any inpatient hospitalizations here and has been treated with antidepressants. #1. Engage patient in individual milieu and group therapy #2. Therapeutic observation 15-minute checks on the milieu. #3 Continue Prozac as prescribed #4 we will attempt to gather collateral information and monitor closely #5 Place patient on alcohol withdrawal protocol Involuntary Hold Information 96 Hour Hold: 96 Hour Involuntary Admission: Yes 96 Hour Hold Ending Date: 11/03/21 96 Hour Hold Ending Time: 13:24 Attestations NPU Medical Necessity Statement*: Inpatient hospitalization is medically necessary and the clinically appropriate dimension at this time. We will monitor medications and make changes as indicated. Likely length of stay 3 to 5 days. Coding Level of Care Code Acute Tobacco Cutter for Quentin Ortegad Diagnoses Delusions of parasitosis F22 Altered mental status R41.82 Formication R20.2
[2021-11-01 19:36] VITALS: BP 89/61; PULSE 89; RESP 17; TEMP 36.8; O2SAT 97
[2021-11-01] MEDS: risperiDONE 1 mg Tablet 0.5 MG PO (20:23)
[2021-11-01] MEDS: quetiapine 100 mg Tablet 200 MG PO (20:26)
[2021-11-01 22:00] VITALS: BP 89/61; PULSE 89; RESP 17; TEMP 36.8; O2SAT 97
[2021-11-02] MEDS: OLANZapine 5 mg ODT PO ×2 (04:28→16:57)
[2021-11-02] MEDS: cyclobenzaprine 10 mg Tablet PO ×2 (04:28→16:57)
[2021-11-02 06:00] VITALS: BP 89/61; PULSE 89; RESP 17; TEMP 36.8; O2SAT 97; BMI 24.4
[2021-11-02] MEDS: HYDROcodone-acetaminophen 10-325 mg Tablet 1 TAB PO ×2 (08:45→16:57)
[2021-11-02] MEDS: lisinopril 10 mg Tablet PO (08:45)
[2021-11-02] MEDS: docusate sodium 100 mg Capsule PO (08:45)
[2021-11-02] MEDS: propranolol 20 mg Tablet PO (08:45)
[2021-11-02] MEDS: baclofen 10 mg Tablet 20 MG PO ×3 (08:45→20:33)
[2021-11-02] MEDS: haloperidol 5 mg Tablet PO (08:45)
[2021-11-02] MEDS: folic acid 1 mg Tablet PO (08:45)
[2021-11-02] MEDS: multivitamin therapeutic Tablet 1 TAB PO (08:46)
[2021-11-02] MEDS: gabapentin 400 mg Capsule 800 MG PO ×3 (08:46→20:31)
[2021-11-02] MEDS: fluoxetine 20 mg Capsule PO (08:46)
[2021-11-02] MEDS: hyDROXYzine 25 mg Capsule 50 MG PO (08:46)
--- NOTE | 2021-11-02 09:44 | PC.NURSE ---
PRN MEDICATIONS PT VERY ANXIOUS AND RESPONDING TO INTERNAL AND EXTERNAL STIMULI. PT WAS VERY AGRESSIVE AND WAS SLAPPING THIS RN AWAY DURING ASSESSMENT. PT STATES SHE IS SEEING THINGS BUT CAN'T REMEMBER WHAT IT IS REPORTS PAIN 6/10 HYDROCODONE GIVEN ORDERED. PT WAS GIVEN VISTARIL AND HALDOL ORDERED FOR SEVERE AGITATION/ANXIETY, LITTLE EFFECT NOTED. PT CONTINUES TO SIT ON BENCH BY NURSES STATION YELLING OUT, SHE WANTS TO GO HOME, OR NO ONE LOVES HER AND YELLING AT STAFF. PT WAS REDIRECTED VERBALLLY MULTIPLE TIMES WITH NO EFFECT. SUPPORT VOICE.
--- NOTE | 2021-11-02 09:56 | PC.NURSE ---
Abnormal Behaviors Patient on bench near nursing station. She is screaming out profanities towards the nurses and is having hallucinations of objects, people, and animals. Patient has been yelling at a cat, screaming that her children are at the nurse's station, saying she is leaving today, is accusing nurses of sprinkling her medications with poison, and has yelled at other patient that they are stupid and need to get away from her. Verbal deescalation attempted, but was unsuccessful.
--- NOTE | 2021-11-02 13:13 | PC.NURSE ---
NEW ORDERS PT CONTINUES TO YELL OUT, CUSS AND SCREAM AT STAFF AND PEERS. PT RESPONDING TO INTERNAL AND EXTERNAL STIMULI. PT BELIEVES SHE IS SEEING A MOUSE WITH SOCKS ON, TRYING TO PUNCH STAFF BUT MISSING AND SEEING CAMERAS ON THE WALL. PT HAS BEEN VERBALLY REDIRECTED MULTIPLE TIMES AND ASSISTED TO BED BUT BEGINS TO YELL AND GETS BACK UP. DR. BROWER WAS NOTIFIED, MEDICATIONS WERE REVIEWED. NEW ORDERS RECEIVED TO INCREASE RISPERIDONE TO 1 MG PO BID, START THE FIRST DOSE NOW. ATTEMPTED TO EDUCATED PT ON NEW ORDERS, UNABLE TO EDUCATE DUE TO PSYCHOSIS. ORDERS PLACED IN Interneer.
[2021-11-02] MEDS: risperiDONE 1 mg Tablet PO ×2 (13:27→20:33)
[2021-11-02 14:00] VITALS: BP 90/62; PULSE 82; RESP 18; TEMP 36.5; O2SAT 96
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
--- NOTE | 2021-11-02 19:14 | CTR_ITS ---
PROCEDURE INFORMATION: Exam: CT Head Without Contrast Exam date and time: 11/02/2021 8:54 PM Age: 61 years old Clinical indication: Other: Axphyxation; Additional info: Axphyxiation TECHNIQUE: Imaging protocol: Computed tomography of the head without contrast. Radiation optimization: All CT scans at this facility use at least one of these dose optimization techniques: automated exposure control; mA and/or kV adjustment per patient size (includes targeted exams where dose is matched to clinical indication); or iterative reconstruction. COMPARISON: CT head wo con* [id number] 10/28/2021 1:00 AM RADIATION DOSE METRICS: Total DLP (mGy-cm): 1087.85 FINDINGS: Brain: Normal. No hemorrhage. Unremarkable white matter. No mass effect. There is a prominent perivascular space on the left. There is very mild volume loss. Cerebral ventricles: No ventriculomegaly. Paranasal sinuses: Visualized sinuses are unremarkable. No fluid levels. Mastoid air cells: Visualized mastoid air cells are well aerated. Bones/joints: Unremarkable. No acute fracture. Soft tissues: Unremarkable. CT/CT head wo con* [id number] IMPRESSION: No acute intracranial abnormality. Unchanged exam.
--- NOTE | 2021-11-02 19:14 | CTR_ITS ---
PROCEDURE INFORMATION: Exam: CT Cervical Spine Without Contrast Exam date and time: 11/02/2021 8:57 PM Age: 61 years old Clinical indication: Injury or trauma; Fall; Blunt trauma; Prior surgery; Surgery date: 6+ months; Surgery type: Cervical; Additional info: Neck injury TECHNIQUE: Imaging protocol: Computed tomography of the cervical spine without contrast. Radiation optimization: All CT scans at this facility use at least one of these dose optimization techniques: automated exposure control; mA and/or kV adjustment per patient size (includes targeted exams where dose is matched to clinical indication); or iterative reconstruction. COMPARISON: CR XR cervical spine 1V [id number] 05/03/2021 2:07 PM RADIATION DOSE METRICS: Total DLP (mGy-cm): 160.27 FINDINGS: Bones/joints: No acute fracture. Normal alignment. No significant disc protrusion. No severe spinal canal stenosis. Postoperative changes with pedicle screw and posterolateral monico fixation from C3 to T2 are noted. No hardware fracture or loosening. Severe osteoarthritic/degenerative changes are noted between the occipital condyles and C1 left greater than right. Lungs: Lung apices are normal. Soft tissues: Unremarkable. CT/CT cervical spin wo con* [id number] IMPRESSION: No acute findings. Postoperative fusion and severe spondylosis at the craniocervical junction are noted.
[2021-11-02 20:08] VITALS: BP 72/53; PULSE 97; RESP 18; O2SAT 96
[2021-11-02] MEDS: quetiapine 100 mg Tablet 200 MG PO (20:31)
[2021-11-02] MEDS: trazodone 50 mg Tablet PO (20:32)
[2021-11-02] MEDS: propranolol 20 mg Tablet 10 MG PO (20:32)
--- NOTE | 2021-11-02 20:56 | PC.NURSE ---
2048- pt to ct at this time with security and senior data warehouse developer
--- NOTE | 2021-11-02 23:12 | PC.NURSE ---
PT BEGAN TALKING IN HER SLEEP AND TRYING TO GET OUT OF BED. WHEN ASKED IF SHE NEEDED HELP, PT STATED YES, I WANT TO GO TO SLEEP. THIS NURSE TOLD HER, YOU ARE IN YOUR BED. YOU HAVE TO LAY DOWN TO GO TO SLEEP. SHE ALLOWED THIS NURSE TO HELP HER LIE BACK DOWN. PT THEN STARTED YELLING THAT SHE WAS GOING TO FALL OUT OF BED. THIS NURSE ASKED HER IF SHE WANTED THE SIDE RAILS PUT UP ON THAT SIDE OF THE BED. PT REPORTED YES. SIDE RAILS PUT UP ON ONE SIDE OF BED.
[2021-11-03 06:00] VITALS: BP 105/73; PULSE 87; RESP 18; O2SAT 94
[2021-11-03] MEDS: haloperidol 5 mg Tablet PO ×2 (07:46→15:29)
[2021-11-03] MEDS: cyclobenzaprine 10 mg Tablet PO ×2 (07:46→15:28)
[2021-11-03] MEDS: HYDROcodone-acetaminophen 10-325 mg Tablet 1 TAB PO ×2 (07:46→15:28)
[2021-11-03] MEDS: folic acid 1 mg Tablet PO (07:47)
[2021-11-03] MEDS: propranolol 20 mg Tablet 10 MG PO ×2 (07:47→20:31)
[2021-11-03] MEDS: baclofen 10 mg Tablet 20 MG PO ×3 (07:48→20:32)
[2021-11-03] MEDS: gabapentin 400 mg Capsule 800 MG PO ×3 (07:48→20:30)
[2021-11-03] MEDS: fluoxetine 20 mg Capsule PO (07:49)
[2021-11-03] MEDS: multivitamin therapeutic Tablet 1 TAB PO (07:49)
[2021-11-03] MEDS: lisinopril 10 mg Tablet PO (07:49)
[2021-11-03] MEDS: risperiDONE 1 mg Tablet PO ×2 (07:49→20:33)
[2021-11-03] MEDS: docusate sodium 100 mg Capsule PO (07:49)
[2021-11-03] MEDS: neomycin-poly-bacitracin oint 28 gm 1 APPLIC TOPICAL (07:50)
--- NOTE | 2021-11-03 08:09 | PC.NURSE ---
PT IS UP IN BED LOUDLY YELLING FOR PEOPLE TO STOP LOOKING AT HER. THIS NURSE WENT INTO PT ROOM AND PT HAD FALLEN OVER IN BED AND NEEDED HELP SITTING UP. THIS NURSE SAT PT UP THEN PT YELLED AT THIS NURSE GET OUT AND QUIT STARING AT ME!
[2021-11-03 11:01] LABS: Basophils % 0.3 %; Eosinophils # 0.3 10^3/uL (0.0-0.8); Eosinophils % 4.8 %; Hematocrit 40.4 % (37.0-47.0); Hemoglobin 12.8 g/dL (11.5-15.3); Lymphocytes # 1.9 10^3/uL (0.8-4.8); Lymphocytes % 28.8 %; Mean Corpuscular HGB Conc 31.7 g/dL (30.0-36.0); Mean Corpuscular Hemoglobin 30.6 pg (28.0-34.0); Mean Corpuscular Volume 96.7 fl (81-99); Mean Platelet Volume 10.8 fL (7.4-10.4); Monocytes # 0.6 10^3/uL (0.2-0.9); Monocytes % 8.7 %; Neutrophils # 3.81 10^3/uL (1.8-7.7); Neutrophils % 57.1 %; Nucleated Red Blood Cells % 0 %; Platelet Count 233 10^3/cmm (130-400); Red Blood Count 4.18 10^6/uL (4.1-5.3); Red Cell Distribution Width 13.4 % (12.1-15.1); White Blood Count 6.7 10^3/uL (4.0-10.0)
--- NOTE | 2021-11-03 11:01 | W.PM.NPUPNS ---
Subjective NPU Subjective: Patient presents today waning in her clarity and speaking oddly about most questions that I asked. At 1 point after asking her questions she began spelling out and answer her headboard but the spelling made no sense. She denies any pain or problems from yesterday's situation. But she appeared very disorganized in her attempts or questions in general. She was mistaking patients for people she knew and yelling out that other person's name but being upset when the patient did not respond. Mental Status Exam MSE Comments: This is a well-nourished white female in hospital scrubs with limited grooming but adequate eye contact. Hands in a balled position never being extended for dexterity to assist in the tasks she was trying to accomplish. Lying in the bed where she was limited in her attentiveness to our conversation. Cooperative with exam in moderate distress. Speech was decreased rate and volume. Mood not described, affect appeared . Thought process organized. Thought content: Patient denied suicidal or homicidal ideation, no delusions reported or noted, she denied any auditory or visual hallucinations but did appear to be attending to internal stimuli. Attention concentration appeared intact and memory appeared mostly reliable but none were formally tested. She alert and oriented x3. Insight and judgment limited, impulse control limited by the. Vitals/I&O/Wt Last Vital Signs Temp 97.7 F 11/02/21 14:00 Pulse 87 11/03/21 06:00 Resp 18 11/03/21 06:00 BP 105/73 11/03/21 06:00 Pulse Ox 94 11/03/21 06:00 O2 Del Method 11/02/21 14:00 Weight last 48 hrs Weight 62.596 kg Data NPU : 11/03/21 10:45 11/03/21 10:45 A&P Assessment and plan (1) Delusions of parasitosis: Status: Acute (2) Altered mental status: Status: Acute (3) Formication: Status: Acute Plan Anastasiya is a 61-year-old white female who appears to have altered mental status. It is uncertain as to whether she has a active [place] I diagnosis suggestive of schizophrenia but appears to have more significant concerns regarding her mental status which may be due to medical causes at this time including alcohol withdrawal urinary tract infection. We will attempt to gather collateral information to elucidate at this time is that she does not appear to have any inpatient hospitalizations here and has been treated with antidepressants. #1. Engage patient in individual milieu and group therapy #2. Therapeutic observation 15-minute checks on the milieu. #3 Continued Prozac as prescribed and increased Risperdal to 1 mg p.o. twice daily. #4 we will attempt to gather collateral information and monitor closely #5 Place patient on alcohol withdrawal protocol #6 Examined without signs of trauma and contact the hospitalist to follow-up and ensure there are no concerns regarding injury given her previous neck/spine surgeries. Involuntary Hold Information 96 Hour Hold: 96 Hour Involuntary Admission: Yes 96 Hour Hold Ending Date: 11/03/21 96 Hour Hold Ending Time: 13:24 Attestations NPU Medical Necessity Statement*: Inpatient hospitalization is medically necessary and the clinically appropriate dimension at this time. We will monitor medications and make changes as indicated. Likely length of stay 2-4 days. Coding Level of Care Code Acute Regional Production Manager for Quentin Connelly Diagnoses Delusions of parasitosis F22 Altered mental status R41.82 Formication R20.2
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
[2021-11-03 11:12] LABS: Alanine Aminotransferase 27 U/L (0-33); Albumin Level 4.1 g/dL (3.5-5.2); Alkaline Phosphatase 138 U/L (35-105); Aspartate Amino Transferase 29 U/L (0-32); Blood Urea Nitrogen 21 mg/dL (6-20); Calcium 9.7 mg/dL (8.5-10.5); Carbon Dioxide 28 mmol/L (22-29); Chloride 103 mmol/L (98-107); Globulin 3.1 g/dL (1.3-4.6); Glomerular Filtration Rate 64.1 mL/min (90-130); Glucose 93 mg/dL (65-115); Osmolality Calculated 291 mOsm/kg (285-295); Sodium 139 mmol/L (136-145); Total Bilirubin 0.2 mg/dL (0.15-1.2); Total Protein 7.2 g/dL (6.6-8.7)
[2021-11-03] MEDS: OLANZapine 5 mg ODT PO (11:13)
[2021-11-03 11:14] LABS: Anion Gap 12.8 (5-19); Potassium 4.8 mmol/L (3.5-5.1)
[2021-11-03 11:54] LABS: Chol HDL Ratio 4.25 mg/dL (0.0-4.40); Cholesterol 251 mg/dL (0-200); HDL Cholesterol 59 mg/dL (60-100); Iron 45 ug/dL (37-145); LDL Cholesterol Calculated 158 mg/dL (50-129); Thyroid Stimulating Hormone 1.25 uIU/mL (0.27-4.20); Total Iron Binding Capacity 372 mcg/dl; Triglycerides 172 mg/dL (0-150); Unsaturated Iron Binding 327 ug/dL (112-347); VLDL Cholestrol Calculation 34 mg/dL (0-30)
[2021-11-03 12:17] LABS: Estmated Average Glucose 105; Hemoglobin A1C 5.3 % (4.0-6.0)
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
[2021-11-03 14:00] VITALS: BP 147/95; PULSE 70; RESP 16; TEMP 36.6; O2SAT 97
[2021-11-03] MEDS: benztropine 1 mg Tablet PO (15:28)
[2021-11-03] MEDS: atorvastatin 40 mg Tablet PO (20:30)
[2021-11-03] MEDS: quetiapine 100 mg Tablet 200 MG PO (20:32)
[2021-11-03 21:06] VITALS: RESP 18
[2021-11-04 06:00] VITALS: BP 140/96; PULSE 86; RESP 16; O2SAT 97
[2021-11-04] MEDS: gabapentin 400 mg Capsule 800 MG PO ×3 (08:44→22:32)
[2021-11-04] MEDS: docusate sodium 100 mg Capsule PO (08:44)
[2021-11-04] MEDS: HYDROcodone-acetaminophen 10-325 mg Tablet 1 TAB PO (08:44)
[2021-11-04] MEDS: propranolol 20 mg Tablet 10 MG PO ×2 (08:44→22:36)
[2021-11-04] MEDS: risperiDONE 1 mg Tablet PO (08:44)
[2021-11-04] MEDS: aspirin 81 mg EC Tablet PO (08:44)
[2021-11-04] MEDS: lisinopril 10 mg Tablet PO (08:44)
[2021-11-04] MEDS: baclofen 10 mg Tablet 20 MG PO ×3 (08:44→22:37)
[2021-11-04] MEDS: cyclobenzaprine 10 mg Tablet PO (08:45)
[2021-11-04] MEDS: multivitamin therapeutic Tablet 1 TAB PO (08:45)
[2021-11-04] MEDS: folic acid 1 mg Tablet PO (08:45)
[2021-11-04] MEDS: fluoxetine 20 mg Capsule PO (08:45)
[2021-11-04] MEDS: OLANZapine 5 mg ODT PO (08:51)
--- NOTE | 2021-11-04 12:26 | PC.NURSE ---
PRN MEDICATIONS NEW ORDERS RECEIVED FROM DR. BROWER TO DISCONTINUE 1 MG OF RISPERODONE AT HS AND CONTINUE 1 MG IN AM. ORDERS PLACED. NEW ORDERS RECEIVED TO START GEODON 20 MG BID TO START NOW. ORDERS PLACED. UNABLE TO EDUCATE PT DUE TO SEVERE PSYCHOSIS.
[2021-11-04 14:00] VITALS: BP 118/80; PULSE 99; RESP 18; TEMP 36.4; O2SAT 99
--- NOTE | 2021-11-04 14:13 | PC.NURSE ---
PRN MEDICATIONS PT IN BED THIS AM TEARFUL AND CRYING. HYDROCONDONE WAS GIVEN ORDERED FOR PAIN 10/01. FLEXARIL WAS ALSO GIVEN ORDERED FOR PAIN. PT WAS HAVING SEVERE ANXIETY. ZYDIS WAS GIVEN ORDERED FOR ANXIETY AND AUDITORY HALLUCINATIONS. PT CAME TO NURSES STATION AND HAD DIFFICULTY TAKING MEDS, THREW HER WATER DOWN. PT DID EVENTAUALLY TAKE MEDICATIONS WITH MULTIPLE PROMPTING.
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
[2021-11-04] MEDS: ziprasidone hcl 20 mg Capsule PO (17:19)
[2021-11-04 19:38] VITALS: BP 104/75; PULSE 113; RESP 17; TEMP 36.7; O2SAT 95
--- NOTE | 2021-11-04 20:12 | PC.NURSE ---
Attempted to give patient her medications,told her what they were,but patient refused to take them.
[2021-11-04] MEDS: atorvastatin 40 mg Tablet PO (22:37)
[2021-11-04] MEDS: quetiapine 100 mg Tablet 200 MG PO (22:38)
[2021-11-05 06:00] VITALS: BP 111/81; PULSE 103; RESP 18; TEMP 36.6; O2SAT 96
[2021-11-05] MEDS: ziprasidone hcl 20 mg Capsule PO ×2 (06:06→21:26)
[2021-11-05] MEDS: HYDROcodone-acetaminophen 10-325 mg Tablet 1 TAB PO ×3 (06:26→15:39)
--- NOTE | 2021-11-05 06:31 | PC.NURSE ---
Medicated patient with Hydrocodone 10/325 mg for neck pain rated an 8.
[2021-11-05] MEDS: fluoxetine 20 mg Capsule PO (09:20)
[2021-11-05] MEDS: risperiDONE 1 mg Tablet PO (09:20)
[2021-11-05] MEDS: docusate sodium 100 mg Capsule PO (09:21)
[2021-11-05] MEDS: lisinopril 10 mg Tablet PO (09:21)
[2021-11-05] MEDS: multivitamin therapeutic Tablet 1 TAB PO (09:21)
[2021-11-05] MEDS: aspirin 81 mg EC Tablet PO (09:21)
[2021-11-05] MEDS: folic acid 1 mg Tablet PO (09:25)
[2021-11-05] MEDS: cyclobenzaprine 10 mg Tablet PO ×2 (09:43→13:55)
[2021-11-05] MEDS: baclofen 10 mg Tablet 20 MG PO ×3 (13:55→21:21)
[2021-11-05] MEDS: gabapentin 400 mg Capsule 800 MG PO ×3 (13:55→20:25)
[2021-11-05 14:00] VITALS: BP 88/60; PULSE 93; RESP 17; O2SAT 96
--- NOTE | 2021-11-05 16:53 | W.PM.NPUPNS ---
Subjective NPU Subjective: Patient presents today appearing more lucid and more able to interact. She continues to be assistance and was happy to know that [facility] would like to accept her. We discussed the likelihood of discharge in the next 48 hours. She had issues with the change to Geodon. However she was more somnolent during some portions of the day. Mental Status Exam MSE Comments: This is a well-nourished white female in hospital scrubs with limited grooming but adequate eye contact. Hands in a balled position never being extended for dexterity to assist in the tasks she was trying to accomplish. Lying in the bed where she was more animated today. Cooperative with exam in no acute distress. Speech was decreased rate and volume. Mood described as fine, affect appeared odd. Thought process organized. Thought content: Patient denied suicidal or homicidal ideation, no delusions reported or noted, she denied any auditory or visual hallucinations but did appear to be attending to internal stimuli. Attention concentration appeared intact and memory appeared mostly reliable but none were formally tested. She alert and oriented x3. Insight and judgment limited, impulse control limited. Vitals/I&O/Wt Last Vital Signs Temp 97.6 F 11/05/21 22:00 Pulse 94 11/05/21 22:00 Resp 14 11/05/21 22:00 BP 146/74 11/05/21 22:00 Pulse Ox 95 11/05/21 22:00 O2 Del Method 11/05/21 22:00 Data NPU : 11/03/21 10:45 11/03/21 10:45 A&P Assessment and plan (1) Delusions of parasitosis: Status: Acute (2) Altered mental status: Status: Acute (3) Formication: Status: Acute Plan Anastasiya is a 61-year-old white female who appears to have altered mental status. It is uncertain as to whether she has a active [place] I diagnosis suggestive of schizophrenia but appears to have more significant concerns regarding her mental status which may be due to medical causes at this time including alcohol withdrawal urinary tract infection. We will attempt to gather collateral information to elucidate at this time is that she does not appear to have any inpatient hospitalizations here and has been treated with antidepressants. #1. Engage patient in individual milieu and group therapy #2. Therapeutic observation 15-minute checks on the milieu. #3 Continued Prozac as prescribed and decreased Risperdal to 1 mg and changed to nightly and change Geodon 20 mg twice daily to 12 mg nightly with plan to discontinue Risperdal in 1 week. #4 we will attempt to gather collateral information and monitor closely #5 Place patient on alcohol withdrawal protocol #6 appreciate hospitalist's consult and will follow recommendations indicated. Involuntary Hold Information 96 Hour Hold: 96 Hour Involuntary Admission: Yes 96 Hour Hold Ending Date: 11/03/21 96 Hour Hold Ending Time: 13:24 Attestations NPU Medical Necessity Statement*: Inpatient hospitalization is medically necessary and the clinically appropriate dimension at this time. We will monitor medications and make changes as indicated. Likely length of stay 1-3 days. Coding Level of Care Code Acute [employer] for [facility]entin Fwd Diagnoses Delusions of parasitosis F22 Altered mental status R41.82 Formication R20.2
[2021-11-05] MEDS: propranolol 20 mg Tablet 10 MG PO (21:25)
[2021-11-05 22:00] VITALS: BP 146/74; PULSE 94; RESP 14; TEMP 36.4; O2SAT 95
[2021-11-06] MEDS: hyDROXYzine 25 mg Capsule 50 MG PO (03:18)
[2021-11-06 06:00] VITALS: BP 146/98; PULSE 116; RESP 18; TEMP 36.5; O2SAT 96
[2021-11-06] MEDS: gabapentin 400 mg Capsule 800 MG PO ×2 (09:00→09:53)
[2021-11-06] MEDS: baclofen 10 mg Tablet 20 MG PO ×2 (09:00→09:57)
--- NOTE | 2021-11-06 09:34 | PC.NURSE ---
Nursing Behavioral Assessment Patient is in dayroom waiting for breakfast. She states she has no thoughts of suicide or homicide. Patient states she is hearing voices that talk to her about her kids and she is talking about seeing her kids frequently. Patient began talking to the right side of her and kept calling for someone named Mable. When handing off report, cardiopulmonary technologist chief stated she only slept about 30 minutes last night. Patient states she has back pain but does not want medication for it.
[2021-11-06] MEDS: folic acid 1 mg Tablet PO (09:52)
[2021-11-06] MEDS: docusate sodium 100 mg Capsule PO (09:52)
[2021-11-06] MEDS: fluoxetine 20 mg Capsule PO (09:53)
[2021-11-06] MEDS: HYDROcodone-acetaminophen 10-325 mg Tablet 1 TAB PO (09:54)
[2021-11-06] MEDS: propranolol 20 mg Tablet 10 MG PO (09:54)
[2021-11-06] MEDS: lisinopril 10 mg Tablet PO (09:55)
[2021-11-06] MEDS: multivitamin therapeutic Tablet 1 TAB PO (09:55)
[2021-11-06] MEDS: OLANZapine 5 mg ODT PO (09:56)
[2021-11-06] MEDS: aspirin 81 mg EC Tablet PO (10:00)
[2021-11-06 14:00] VITALS: PULSE 106; RESP 20; O2SAT 95
--- NOTE | 2021-11-06 15:54 | W.PM.NPUDCS ---
Diagnoses at Discharge Discharge Diagnosis (1) Delusions of parasitosis: Status: Resolved (2) Altered mental status: Status: Acute (3) Formication: Status: Acute Reason for Visit Reason for Visit: hearing voices Brief History: History of Present Illness Anastasiya Puga is a 61 year old female who was admitted to the neuropsychiatric unit for definitive treatment after she had presented to the emergency room believing that her house had been invaded by people who are planting drugs there. The patient was a poor historian and reports that she has been hearing voices of a woman in her head and reports that poison is peeling off of her legs. She also reported that she felt like her legs had ants inside of them. She did not endorse depressed mood and appeared very confused as to why she was here. She has a history of acute mental status changes associated with urinary tract infections as well as a history of significant alcohol consumption leading to massive confusion and some withdrawal symptoms. The patient did report on interview that she did not intend on being here at any longer and made vague statements of hoping to pass away from unspecified reasons. Past Psychiatric History: She did appear to be receiving medications from [facility] along with another entity. She was unable to report whether she has any inpatient or outpatient treatment on interview but there did appear to be multiple medications upon examination of her medications including trazodone Zoloft Prozac Seroquel, docusate, baclofen, gabapentin, lisinopril, propranolol, and opiates. There has been a past reported history of opiate withdrawal while receiving care here at [facility]. Medical History/Surgical History/Allergies: see below Social History: Living by herself. She reports having been previously and lives in [facility]. She minimized any alcohol or drug use and her urine drug screen was negative for alcohol. Family psychiatric history: unknown Hospital Course Hospital Course She slowly acclimated to the individual, group and milieu therapies provided. Significant concerns existed about possible addiction complicating the situation. She was taken off of Risperdal and manager exchange to Geodon, BuSpar and Zoloft were discontinued and Prozac was started. She showed some modest improvement but had physical limitations likely having some cognitive decline. It was clear she was incapable of functioning independently and the treatment team was able to find her a retirement. She was able to contract for safety outside of the hospital prior to discharge.? During the hospitalization, patient had routine laboratory studies which were within normal limits except for few outliers.? Additionally there was a general medical evaluation which was also within normal limits and revealed no new acute processes. Discharge Summary: At the time of discharge, she denied psychosis or lethality.? Mood and anxiety were well managed.? Patient endorsed a plan to avoid all drugs of abuse and follow-up with the aftercare recommendations of the treatment team.? Patient was evaluated and deemed to be absent credible lethality, and had achieved the maximum benefit from an inpatient hospitalization, so was discharged. Involuntary Hold Information 96 Hour Hold: 96 Hour Involuntary Admission: Yes 96 Hour Hold Ending Date: 11/03/21 96 Hour Hold Ending Time: 13:24 Mental Status Exam MSE Comments: This is a well-nourished white female in hospital scrubs with limited grooming but adequate eye contact. Hands in a balled position never being extended for dexterity to assist in the tasks she was trying to accomplish. Lying in the bed where she was more animated today. Cooperative with exam in no acute distress. Speech was decreased rate and volume. Mood described as fine, affect appeared odd. Thought process organized. Thought content: Patient denied suicidal or homicidal ideation, no delusions reported or noted, she denied any auditory or visual hallucinations but did appear to be attending to internal stimuli. Attention concentration appeared intact and memory appeared mostly reliable but none were formally tested. She alert and oriented x3. Insight and judgment limited, impulse control limited. Discharge Data Studies Completed and Pending: Completed Studies During Hospitalization Category Date Time Status CT cervical spin wo con* [id number] Rout ine Cat Scan 11/02/21 19:[address] head wo con* 7 0450 Routine Cat Scan 11/02/21 19:[address] head wo con* 7 0450 Stat Cat Scan 10/28/21 00:42 Completed XR chest 1V everardo ble [id number] Stat Exams 10/28/21 04:39 Completed Radiology Impressions Chest X-Ray 10/28/21 04:39 IMPRESSION: Negative exam. No change from comparison. Cervical Spine CT 11/02/21 19:14 IMPRESSION: No acute findings. Postoperative fusion and severe spondylosis at the craniocervical junction are noted. Head CT 11/02/21 19:14 IMPRESSION: No acute intracranial abnormality. Unchanged exam. Laboratory Results WBC 6.7 10^3/uL (4.0- 10.0) 11/03/21 10:45 RBC 4.18 10^6/uL (4.1 -5.3) 11/03/21 10:45 Hgb 12.8 g/dL (11.5-1 5.3) 11/03/21 10:45 Hct 40.4 % (37.0-47.0 ) 11/03/21 10:45 MCV 96.7 fl (81-99) 11/03/21 10:45 MCH 30.6 pg (28.0-34. 0) 11/03/21 10:45 MCHC 31.7 g/dL (30.0-3 6.0) 11/03/21 10:45 RDW 13.4 % (12.1-15.1 ) 11/03/21 10:45 Plt Count 233 10^3/cmm (130 -400) 11/03/21 10:45 MPV 10.8 fL (7.4-10.4 ) H 11/03/21 10:45 Neut % (Auto) 57.1 % 11/03/21 10:45 Lymph % (Auto) 28.8 % 11/03/21 10:45 Kingfisher % (Auto) 8.7 % 11/03/21 10:45 Eos % (Auto) 4.8 % 11/03/21 10:45 Baso % (Auto) 0.3 % 11/03/21 10:45 Neut # (Auto) 3.81 10^3/uL (1.8 -7.7) 11/03/21 10:45 Lymph # (Auto) 1.9 10^3/uL (0.8- 4.8) 11/03/21 10:45 Kingfisher # (Auto) 0.6 10^3/uL (0.2- 0.9) 11/03/21 10:45 Eos # (Auto) 0.3 10^3/uL (0.0- 0.8) 11/03/21 10:45 Baso # (Auto) 0.0 10^3/uL (0.0- 0.1) 11/03/21 10:45 Nucleated RBC % (a uto) 0 % 11/03/21 10:45 Nucleated RBCs # 0.0 /100WBC 11/03/21 10:45 Sodium 139 mmol/L (136-1 45) 11/03/21 10:45 Potassium 4.8 mmol/L (3.5-5 .1) 11/03/21 10:45 Chloride 103 mmol/L (98-10 7) 11/03/21 10:45 Carbon Dioxide 28 mmol/L (22-29) 11/03/21 10:45 Anion Gap 12.8 (5-19) 11/03/21 10:45 BUN 21 mg/dL (6-20) H 11/03/21 10:45 Creatinine 0.9 mg/dL (0.5-0. 9) 11/03/21 10:45 GFR Calculation 64.1 mL/min (90-1 30) L 11/03/21 10:45 Glucose 93 mg/dL (65-115) 11/03/21 10:45 Estimat Average Gl ucose 105 11/03/21 10:45 Hemoglobin A1c 5.3 % (4.0-6.0) 11/03/21 10:45 Calculated Osmolal ity 291 mOsm/kg (285- 295) 11/03/21 10:45 Calcium 9.7 mg/dL (8.5-10 .5) 11/03/21 10:45 Iron 45 ug/dL (37-145) 11/03/21 10:45 TIBC 372 mcg/dl 11/03/21 10:45 % Saturation 12.0 % (20-50) L 11/03/21 10:45 Unsat Iron Binding 327 ug/dL (112-34 7) 11/03/21 10:45 Total Bilirubin 0.2 mg/dL (0.15-1 .2) 11/03/21 10:45 AST 29 U/L (0-32) 11/03/21 10:45 ALT 27 U/L (0-33) 11/03/21 10:45 Alkaline Phosphata se 138 U/L (35-105) H 11/03/21 10:45 Total Protein 7.2 g/dL (6.6-8.7 ) 11/03/21 10:45 Albumin 4.1 g/dL (3.5-5.2 ) 11/03/21 10:45 Globulin 3.1 g/dL (1.3-4.6 ) 11/03/21 10:45 Triglycerides 172 mg/dL (0-150) H 11/03/21 10:45 Cholesterol 251 mg/dL (0-200) H 11/03/21 10:45 LDL Cholesterol, C alc 158 mg/dL (50-129 ) H 11/03/21 10:45 Total VLDL Cholest lisa 34 mg/dL (0-30) H 11/03/21 10:45 HDL Cholesterol 59 mg/dL (60-100) L 11/03/21 10:45 Cholesterol/HDL Ra tristan 4.25 mg/dL (0.0-4 .40) 11/03/21 10:45 TSH 1.25 uIU/mL (0.27 -4.20) 11/03/21 10:45 Urine Color Yellow (Yellow) 10/28/21 03:51 Urine Appearance Cloudy (CLEAR) 10/28/21 03:51 Urine pH 7 (5-7) 10/28/21 03:51 Ur Specific Gravit y 1.005 (1.005-1.0 30) 10/28/21 03:51 Urine Protein Neg (Negative) 10/28/21 03:51 Urine Glucose (UA) Norm (Normal) 10/28/21 03:51 Urine Ketones Negative (Negati ve) 10/28/21 03:51 Urine Blood Trace (Negative) H 10/28/21 03:51 Urine Nitrate Negative (Negati ve) 10/28/21 03:51 Urine Bilirubin Neg (Negative) 10/28/21 03:51 Urine Urobilinogen Norm mg/dL (Negat lenore) 10/28/21 03:51 Ur Leukocyte Annie ase 1+ (Negative) H 10/28/21 03:51 Urine RBC 0-4 /hpf (0-2) H 10/28/21 03:51 Urine WBC 0-4 /hpf (0-5) H 10/28/21 03:51 Ur Squamous Epith Cells 25-40 /hpf (0-5) H 10/28/21 03:51 Amorphous Sediment Not Reportable 10/28/21 03:51 Urine Bacteria 1+ /hpf (NONE) H 10/28/21 03:51 Salicylates < 0.3 mg/dL (3-10 ) L 10/28/21 00:50 Urine Opiates Scre en Positive ng/mL (N egative) H 10/28/21 03:51 Acetaminophen 6.2 ug/mL (10-30) L 10/28/21 00:50 Ur Barbiturates Sc reen Negative ng/mL (N egative) 10/28/21 03:51 Ur Phencyclidine S crn Negative ng/mL (N egative) 10/28/21 03:51 Ur Amphetamines Sc reen Negative ng/mL (N egative) 10/28/21 03:51 U Benzodiazepines Scrn Positive ng/mL (N egative) H 10/28/21 03:51 Urine Cocaine Scre en Negative ng/mL (N egative) 10/28/21 03:51 U Marijuana (THC) Screen Positive ng/mL (N egative) H 10/28/21 03:51 Ethyl Alcohol < 10 mg/dL (0-10) 10/28/21 00:50 SARS-CoV-2 Ag (Rap id) Negative (Negati ve) 10/28/21 04:31 Vitals: Last Vital Signs Temp 97.7 F 11/06/21 06:00 Pulse 106 H 11/06/21 14:00 Resp 20 H 11/06/21 14:00 BP 146/98 11/06/21 06:00 Pulse Ox 95 11/06/21 14:00 O2 Del Method 11/06/21 14:00 Discharge Plan Discharge Patient Disposition: Home Condition: Stable Prescriptions: New atorvastatin 40 mg Tablet 40 mg PO BEDTIME 30 Days Qty: 30 0RF aspirin 81 mg Tablet,Delayed Release (Dr/Ec) 81 mg PO DAILY 30 Days Qty: 30 0RF ziprasidone HCl 20 mg Capsule 20 mg PO 1700 30 Days Qty: 30 0RF Continued multivitamin Tablet 1 tab PO DAILY 30 Days Qty: 30 0RF cyclobenzaprine 10 mg tablet 10 mg PO Q8H PRN (Reason: Pain) 30 Days Qty: 90 0RF gabapentin 400 mg Capsule 800 mg PO TID 30 Days Qty: 180 0RF Seroquel 200 mg Tablet 200 mg PO BEDTIME 30 Days Qty: 30 0RF hydrocodone-acetaminophen 10-325 mg Tablet 0.5 - 1 tab PO .EVERY 4-6 HOURS MDD 4 tabs PRN (Reason: Pain) 15 Days Qty: 45 0RF baclofen 20 mg Tablet 20 mg PO TID 30 Days Qty: 90 0RF lisinopril 10 mg tablet 10 mg PO DAILY 30 Days Qty: 30 0RF docusate sodium 100 mg capsule 100 mg PO DAILY 30 Days Qty: 30 0RF folic acid 1 mg tablet 1 mg PO DAILY 30 Days Qty: 30 0RF propranolol 20 mg Tablet 20 mg PO BID 30 Days Qty: 60 0RF Prozac 20 mg Capsule 20 mg PO DAILY 30 Days Qty: 30 0RF naloxone 4 mg/actuation spray,non-aerosol 4 mg intranasal Q2M PRN (Reason: overdose) 30 Days Qty: 1 0RF Rx Instructions: spray 1 dose into ONE nostril; alternate nostrils w each dose until help arrives Discontinued sertraline 100 mg tablet 200 mg PO DAILY buspirone 15 mg tablet 15 mg PO TID Discharge Orders: Discharge Order (Routine); Ordered 11/06/21 Ordered By: Frederick Atkins Referrals: [facility] [Other] - 11/06/21 Discharge Diet: Regular Discharge Activity: Resume usual activity Patient Instructions: Opioid Safety Discharge Attestations NPU Time Spent in Discharge Care*: greater than 30 min Specific Discharge Activities: Specific discharge activities: educating patient, discussing with case finisher/social workers/dc planners, documenting/other paperwork and evaluating patient/reviewing data Coding Level of Care Code Acute g DC note Diagnoses Delusions of parasitosis F22 Altered mental status R41.82 Formication R20.2
== END 2021-11-06 16:20 | disposition skilled nursing facility (03) | DRG 885 ==
LOC: ER 04:55 → NP 10-29 04:20
PROVIDERS: Student in an Organized Health Care Education/Training Program; Admitting Provider Psychiatry & Neurology Psychiatry; Emergency Provider Emergency Medicine; Visit Provider Psychiatry & Neurology Psychiatry
DX: F22 Delusional disorders (principal); F23 Brief psychotic disorder; F10.239 Alcohol dependence with withdrawal, unspecified; N39.0 Urinary tract infection, site not specified; Y90.0 Blood alcohol level of less than 20 mg/100 ml; R20.2 Paresthesia of skin; R41.82 Altered mental status, unspecified; F32.A Depression, unspecified; F17.200 Nicotine dependence, unspecified, uncomplicated; G89.4 Chronic pain syndrome; G62.9 Polyneuropathy, unspecified; I10 Essential (primary) hypertension; E78.5 Hyperlipidemia, unspecified; M62.422 Contracture of muscle, left upper arm; M62.81 Muscle weakness (generalized); M62.421 Contracture of muscle, right upper arm; S19.9XXA Unspecified injury of neck, initial encounter; Y04.8XXA Assault by other bodily force, initial encounter; Y92.230 Patient room in hospital as the place of occurrence of the external cause; Z98.1 Arthrodesis status; Z87.81 Personal history of (healed) traumatic fracture; Z79.891 Long term (current) use of opiate analgesic; Z87.828 Personal history of other (healed) physical injury and trauma
CPT/HCPCS: 36415; 70450; 71045; 72125; 80053; 80061; 80306; 80307; 81001; 83036; 83540; 83550; 84443; 85025; 87426; 93005; 96372; 97150; 97165; 97167; 99285; J3486; Q0162